=== PATIENT | female | born 1970 ===

== ENCOUNTER 2018-02-14 23:46 | Inpatient (IN) ==
[2018-02-15] MEDS ORDERED: ACETAMINOPHEN 325 MG SUPP RECTAL ONE (01:34)
[2018-02-15] MEDS ORDERED: ONDANSETRON 4 MG/2 ML VIAL IV PRN (02:14)
[2018-02-15] MEDS ORDERED: MORPHINE 4 MG/1 ML VIAL IV PRN (02:14)
[2018-02-15] MEDS: metroNIDAZOLE INJ 500 MG in PREMIX 1 EACH IV SCH ×4 (03:11→20:17)
[2018-02-15] MEDS: SODIUM CHLORIDE 0.9% 1,000 ML IV SCH ×4 (03:12→18:14)
[2018-02-15 04:39] LABS: Basophils # 0.1 10*3/uL (0.0-0.2); Basophils % 0.2 % (0.0-0.8); Hematocrit 28.4 VOL% (35.7-47.0); Hemoglobin 8.8 GM/DL (12.0-16.0); Immature Granulocytes % 3.8 %; Immature Granulocytes Absolute 1.65 #; Lymphocytes # 1.1 10*3/uL (1.4-4.0); Lymphocytes % 2.7 % (21.3-54.2); Mean Corpuscular Hemoglobin 26 PG (27-34); Mean Corpuscular Volume 83.5 FL (87-102); Mean Platelet Volume 9.9 FL (9.6-12.0); Monocytes # 1.8 10*3/uL (0.11-0.8); Monocytes % 4.2 % (1.7-12.7); Neutrophils # 38.3 10*3/uL (1.4-7.4); Neutrophils % 89.1 % (38.7-73.9); Platelet Count 470 T/CUMM (130-400); Red Cell Distribution Width 19.5 % (9.3-17.3)
[2018-02-15 04:58] LABS: White Blood Count 42.9 T/CUMM (4-12)
[2018-02-15 05:04] LABS: Calcium 7.6 MG/DL (8.5-10.1); Osmolality,Calculated 268.2 MOS/KG (273-304); Potassium 3.5 MMOL/L (3.5-5.1)
[2018-02-15] MEDS: cefTRIAXone 2,000 MG in SYRINGE 1 EACH IV SCH ×2 (05:21→16:27)
[2018-02-15 06:06] LABS: Band Neutrophils 7 % (0-10); Lymphocytes 3 % (20-55); Segmented Neutrophils 84 % (50-85); Total Cells Counted 100
[2018-02-15 06:07] LABS: Elliptocytes 1+; Hypochromasia 1+; Ovalocytes 1+
[2018-02-15 06:08] LABS: Microcytosis 1+; Platelet Estimate Normal
[2018-02-15 06:09] LABS: Polychromasia Few
[2018-02-16] MEDS: metroNIDAZOLE INJ 500 MG in PREMIX 1 EACH IV SCH ×4 (02:09→20:59)
[2018-02-16] MEDS: SODIUM CHLORIDE 0.9% 1,000 ML IV SCH ×2 (02:09→09:22)
[2018-02-16] MEDS: cefTRIAXone 2,000 MG in SYRINGE 1 EACH IV SCH ×2 (04:31→16:08)
[2018-02-16 06:05] LABS: Basophils % 0.1 % (0.0-0.8); Eosinophils % 0.1 % (0.00-10.9); Hematocrit 22.4 VOL% (35.7-47.0); Hemoglobin 7.1 GM/DL (12.0-16.0); Immature Granulocytes % 2.7 %; Immature Granulocytes Absolute 0.76 #; Lymphocytes # 1.4 10*3/uL (1.4-4.0); Lymphocytes % 4.9 % (21.3-54.2); Mean Corpuscular HGB Conc 31.7 GM/DL (32-36); Mean Corpuscular Hemoglobin 26 PG (27-34); Mean Corpuscular Volume 82.4 FL (87-102); Mean Platelet Volume 9.5 FL (9.6-12.0); Monocytes # 0.9 10*3/uL (0.11-0.8); Monocytes % 3.2 % (1.7-12.7); Neutrophils # 25.5 10*3/uL (1.4-7.4); Platelet Count 350 T/CUMM (130-400); Red Blood Count 2.72 MC/CUMM (3.8-5.5); Red Cell Distribution Width 19.6 % (9.3-17.3); White Blood Count 28.7 T/CUMM (4-12)
[2018-02-16 06:36] LABS: Giant Platelets Few; Hypochromasia 1+; Lymphocytes 4 % (20-55); Microcytosis Slight; Ovalocytes Slight; Platelet Estimate Adequate; Segmented Neutrophils 94 % (50-85); Total Cells Counted 100
[2018-02-16 06:43] LABS: Bilirubin,Total 0.4 MG/DL (0.2-1.0); Calcium 7.4 MG/DL (8.5-10.1); Potassium 3.3 MMOL/L (3.5-5.1); Total Protein 5.3 G/DL (6.4-8.3)
[2018-02-16 12:33] LABS: Hematocrit 23.1 VOL% (35.7-47.0); Hemoglobin 7.2 GM/DL (12.0-16.0)
[2018-02-16] MEDS: ACETAMINOPHEN 500 MG TABLET PO PRN (17:13)
[2018-02-17] MEDS: metroNIDAZOLE INJ 500 MG in PREMIX 1 EACH IV SCH ×4 (02:07→21:30)
[2018-02-17] MEDS: ACETAMINOPHEN 500 MG TABLET PO PRN (03:11)
[2018-02-17] MEDS: cefTRIAXone 2,000 MG in SYRINGE 1 EACH IV SCH ×2 (04:47→16:51)
[2018-02-17 05:10] LABS: Basophils % 0.2 % (0.0-0.8); Eosinophils # 0.1 10*3/uL (0.0-0.87); Eosinophils % 0.4 % (0.00-10.9); Hematocrit 23.9 VOL% (35.7-47.0); Hemoglobin 7.3 GM/DL (12.0-16.0); Immature Granulocytes % 0.7 %; Immature Granulocytes Absolute 0.13 #; Lymphocytes # 1.7 10*3/uL (1.4-4.0); Lymphocytes % 8.5 % (21.3-54.2); Mean Corpuscular HGB Conc 30.5 GM/DL (32-36); Mean Corpuscular Hemoglobin 26 PG (27-34); Mean Corpuscular Volume 84.2 FL (87-102); Mean Platelet Volume 11.2 FL (9.6-12.0); Monocytes # 0.9 10*3/uL (0.11-0.8); Monocytes % 4.7 % (1.7-12.7); Neutrophils # 16.7 10*3/uL (1.4-7.4); Neutrophils % 85.5 % (38.7-73.9); Platelet Count 345 T/CUMM (130-400); Red Blood Count 2.84 MC/CUMM (3.8-5.5); Red Cell Distribution Width 19.6 % (9.3-17.3); White Blood Count 19.6 T/CUMM (4-12)
[2018-02-17 05:43] LABS: Albumin 2.2 G/DL (3.4-5.0); Calcium 7.4 MG/DL (8.5-10.1); Osmolality,Calculated 273.7 MOS/KG (273-304); Potassium 3.5 MMOL/L (3.5-5.1); Total Protein 5.6 G/DL (6.4-8.3)
[2018-02-17] MEDS ORDERED: SODIUM CHLORIDE 0.9% 1,000 ML IV PRN (09:27)
[2018-02-17 18:30] LABS: Hematocrit 31.4 VOL% (35.7-47.0)
[2018-02-18] MEDS: metroNIDAZOLE INJ 500 MG in PREMIX 1 EACH IV SCH ×2 (01:56→09:19)
[2018-02-18] MEDS: cefTRIAXone 2,000 MG in SYRINGE 1 EACH IV SCH (04:47)
[2018-02-18 08:39] LABS: Basophils # 0.1 10*3/uL (0.0-0.2); Basophils % 0.5 % (0.0-0.8); Eosinophils # 0.1 10*3/uL (0.0-0.87); Hematocrit 32.2 VOL% (35.7-47.0); Hemoglobin 10.6 GM/DL (12.0-16.0); Immature Granulocytes % 1.7 %; Lymphocytes # 1.6 10*3/uL (1.4-4.0); Lymphocytes % 13.4 % (21.3-54.2); Mean Corpuscular HGB Conc 32.9 GM/DL (32-36); Mean Corpuscular Hemoglobin 27 PG (27-34); Mean Corpuscular Volume 80.9 FL (87-102); Mean Platelet Volume 10.1 FL (9.6-12.0); Monocytes # 1.2 10*3/uL (0.11-0.8); Monocytes % 10.2 % (1.7-12.7); NRBC # 0.03 10*3/uL; Neutrophils # 8.6 10*3/uL (1.4-7.4); Neutrophils % 73.2 % (38.7-73.9); Platelet Count 556 T/CUMM (130-400); Red Blood Count 3.98 MC/CUMM (3.8-5.5); Red Cell Distribution Width 18.6 % (9.3-17.3); White Blood Count 11.7 T/CUMM (4-12)
[2018-02-18 08:54] VITALS: BP 121/71
== END 2018-02-18 11:07 | disposition home or self-care (01) | DRG 759 ==
LOC: EDUNIT# → N.ED 23:46 → N.EDINP 02-15 00:24 → N.2E 02-15 01:29 → N.TELEN 02-15 02:42
PROVIDERS: ADMIT Obstetrics & Gynecology; ATTEND Obstetrics & Gynecology

== ENCOUNTER 2020-04-03 01:34 | Inpatient (IN) ==
[2020-04-03] MEDS ORDERED: PROMETHAZINE 25 MG/1 ML VIAL IM PRN (03:24)
[2020-04-03] MEDS ORDERED: ONDANSETRON 4 MG/2 ML VIAL IV PRN (03:24)
[2020-04-03] MEDS ORDERED: NOREPINEPHRINE 8 MG in SODIUM CHLORIDE 0.9% 242 ML IV SCH (03:30)
[2020-04-03] MEDS ORDERED: propofoL 200 MG/20 ML VIAL IV ONE (03:36)
[2020-04-03] MEDS: ROCURONIUM 500 MG in SODIUM CHLORIDE 0.9% 500 ML IV PRN (03:41)
[2020-04-03] MEDS ORDERED: ROCURONIUM 100 MG/10 ML VIAL IV ONE ×2 (03:45→03:59)
[2020-04-03 04:45] LABS: Basophils # 0.1 10*3/uL (0.0-0.2); Basophils % 0.5 % (0.0-0.8); Hematocrit 41.7 VOL% (35.7-47.0); Hemoglobin 12.9 GM/DL (12.0-16.0); Immature Granulocytes % 9.2 %; Immature Granulocytes Absolute 1.94 #; Lymphocytes # 2.1 10*3/uL (1.4-4.0); Lymphocytes % 10.1 % (21.3-54.2); Mean Corpuscular HGB Conc 30.9 GM/DL (32-36); Mean Corpuscular Volume 95.6 FL (87-102); Mean Platelet Volume 9.7 FL (9.6-12.0); Monocytes % 4.7 % (1.7-12.7); NRBC # 0.14 10*3/uL; Neutrophils % 75.5 % (38.7-73.9); Platelet Count 200 T/CUMM (130-400); Red Blood Count 4.36 MC/CUMM (3.8-5.5); Red Cell Distribution Width 12.4 % (9.3-17.3)
[2020-04-03 04:52] LABS: ABG Base Excess -8.4 MMOL/L (-2.5-2.5); ABG HCO3 17.7 MMOL/L (20-26); ABG Oxygen Saturation 96.4 % (95-100); ABG TCO2 21.3 MMOL/L (23-27)
[2020-04-03 04:55] LABS: ABG PCO2 71.2 MM HG (35-48); ABG PH 7.119 (7.35-7.45)
[2020-04-03] MEDS: PANTOPRAZOLE 40 MG VIAL IV SCH (06:15)
[2020-04-03 06:55] LABS: Alanine Aminotransferase 797 U/L (13-56); Albumin 2.3 G/DL (3.4-5.0); Alkaline Phosphatase 355 U/L (45-117); Aspartate Amino Transferase 1885 U/L (0-37); Blood Urea Nitrogen 34 MG/DL (7-18); Calcium 7.1 MG/DL (8.5-10.1); Estimated Glom Filtration Rate 19 ML/MIN; Glucose 299 MG/DL (74-106); Osmolality,Calculated 269.5 MOS/KG (273-304); Total Protein 6.9 G/DL (6.4-8.3)
[2020-04-03] MEDS ORDERED: PHENYLEPHRINE DRIP 40 MG/250 ML PREMIX IV PRN (07:18)
[2020-04-03] MEDS: ENOXAPARIN 100 MG/ML SYRINGE SUBCUT SCH (08:15)
[2020-04-03] MEDS ORDERED: GLUCAGON 1 MG VIAL IM PRN (08:30)
[2020-04-03 08:55] LABS: ABG Base Excess -8.3 MMOL/L (-2.5-2.5); ABG HCO3 17.8 MMOL/L (20-26); ABG Oxygen Saturation 98.1 % (95-100); ABG PCO2 48.3 MM HG (35-48); ABG PH 7.221 (7.35-7.45); ABG TCO2 17.7 MMOL/L (23-27)
[2020-04-03] MEDS: HYDROXYCHLOROQUINE 200 MG TABLET PO SCH ×2 (09:45→21:09)
[2020-04-03] MEDS: ZINC SULFATE 220 MG CAPSULE PO SCH (09:45)
[2020-04-03] MEDS ORDERED: NOREPINEPHRINE 16 MG in SODIUM CHLORIDE 0.9% 234 ML IV PRN (10:57)
[2020-04-03 11:57] LABS: Band Neutrophils 4 % (0-10); Lymphocytes 4 % (20-55); Polychromasia Slight; Segmented Neutrophils 86 % (50-85); Total Cells Counted 100
[2020-04-03 11:58] LABS: Platelet Estimate Adequate; Reactive Lymphocytes Few
[2020-04-03] MEDS: INSULIN REGULAR 100 UNIT/ML SUBCUT SCH ×3 (12:19→23:40)
[2020-04-03 13:18] LABS: Calcium 6.8 MG/DL (8.5-10.1); Osmolality,Calculated 273.2 MOS/KG (273-304)
[2020-04-03] MEDS: ASPIRIN CHEW 81 MG TABLET PO SCH (13:35)
[2020-04-03] MEDS ORDERED: INSULIN REGULAR 100 UNIT/ML IV ONE (13:53)
[2020-04-03] MEDS ORDERED: CALCIUM GLUCONATE 2,000 MG in SODIUM CHLORIDE 0.9% 100 ML IV ONE (13:56)
[2020-04-03 14:20] LABS: Sedimentation Rate-Westergren 36 MM/HR (0-30)
[2020-04-03] MEDS ORDERED: DEXTROSE 50% 25 GM/50 ML VIAL IV ONE (14:54)
[2020-04-03] MEDS ORDERED: SODIUM BICARBONATE 50 MEQ/50 ML VIAL IV ONE (14:56)
[2020-04-03] MEDS: DEXTROSE 10% 250 ML BAG IV PRN (15:02)
[2020-04-04] MEDS ORDERED: LORazepam 2 MG/1 ML VIAL IV PRN (01:06)
[2020-04-04] MEDS ORDERED: LORazepam 2 MG/1 ML VIAL ONE (01:10)
[2020-04-04] MEDS: PANTOPRAZOLE 40 MG VIAL IV SCH (04:00)
[2020-04-04] MEDS: ENOXAPARIN 100 MG/ML SYRINGE SUBCUT SCH (04:00)
[2020-04-04 04:23] LABS: ABG Base Excess -4.9 MMOL/L (-2.5-2.5); ABG HCO3 20.3 MMOL/L (20-26); ABG Oxygen Saturation 95.1 % (95-100); ABG PCO2 47.5 MM HG (35-48); ABG PH 7.277 (7.35-7.45); ABG PO2 92.7 MM HG (80-95); ABG TCO2 19.9 MMOL/L (23-27)
[2020-04-04 04:47] LABS: Basophils # 0.1 10*3/uL (0.0-0.2); Basophils % 0.5 % (0.0-0.8); Eosinophils # 0.1 10*3/uL (0.0-0.87); Eosinophils % 0.3 % (0.00-10.9); Hemoglobin 12.3 GM/DL (12.0-16.0); Immature Granulocytes Absolute 0.89 #; Lymphocytes % 5.5 % (21.3-54.2); Mean Corpuscular HGB Conc 32.4 GM/DL (32-36); Mean Corpuscular Volume 90.3 FL (87-102); Mean Platelet Volume 11.8 FL (9.6-12.0); Monocytes % 2.8 % (1.7-12.7); NRBC # 0.09 10*3/uL; Neutrophils % 85.9 % (38.7-73.9); Red Blood Count 4.21 MC/CUMM (3.8-5.5); Red Cell Distribution Width 12.6 % (9.3-17.3); White Blood Count 17.7 T/CUMM (4-12)
[2020-04-04 05:03] LABS: Platelet Count 113 T/CUMM (130-400)
[2020-04-04 05:06] LABS: Band Neutrophils 1 % (0-10); Hypochromasia 1+; Lymphocytes 9 % (20-55); Nucleated Red Blood Cells 1 (0-5); Platelet Estimate Decreased; Segmented Neutrophils 89 % (50-85); Total Cells Counted 100
[2020-04-04] MEDS: INSULIN REGULAR 100 UNIT/ML SUBCUT SCH ×3 (06:32→17:34)
[2020-04-04 06:52] LABS: Albumin 2.3 G/DL (3.4-5.0); Bilirubin,Total 0.6 MG/DL (0.2-1.0); Calcium 6.1 MG/DL (8.5-10.1); Osmolality,Calculated 286.4 MOS/KG (273-304); Total Protein 6.1 G/DL (6.4-8.3)
[2020-04-04] MEDS: ASPIRIN CHEW 81 MG TABLET PO SCH (08:22)
[2020-04-04] MEDS: HYDROXYCHLOROQUINE 200 MG TABLET PO SCH ×2 (08:24→20:31)
[2020-04-04] MEDS: HEPARIN DRIP 25,000 UNITS/500 ML PREMIX IV SCH (16:50)
[2020-04-04] MEDS: cefTRIAXone 1,000 MG in SYRINGE 1 EACH IV SCH (20:59)
[2020-04-04] MEDS ORDERED: HEPARIN 5,000 UNIT/1 ML VIAL IV ONE (23:30)
[2020-04-05] MEDS: INSULIN REGULAR 100 UNIT/ML SUBCUT SCH ×4 (01:20→17:50)
[2020-04-05 04:39] LABS: ABG Base Excess -5.4 MMOL/L (-2.5-2.5); ABG Oxygen Saturation 97.1 % (95-100); ABG PCO2 40.6 MM HG (35-48); ABG PH 7.312 (7.35-7.45); ABG TCO2 18.4 MMOL/L (23-27)
[2020-04-05 04:55] LABS: Basophils # 0.1 10*3/uL (0.0-0.2); Basophils % 0.5 % (0.0-0.8); Eosinophils # 0.1 10*3/uL (0.0-0.87); Eosinophils % 0.3 % (0.00-10.9); Hematocrit 33.7 VOL% (35.7-47.0); Hemoglobin 10.9 GM/DL (12.0-16.0); Immature Granulocytes % 7.1 %; Lymphocytes # 1.3 10*3/uL (1.4-4.0); Lymphocytes % 6.5 % (21.3-54.2); Mean Corpuscular HGB Conc 32.3 GM/DL (32-36); Mean Corpuscular Volume 91.8 FL (87-102); Mean Platelet Volume 12.1 FL (9.6-12.0); Monocytes % 3.1 % (1.7-12.7); NRBC # 0.18 10*3/uL; Neutrophils % 82.5 % (38.7-73.9); Platelet Count 163 T/CUMM (130-400); Red Blood Count 3.67 MC/CUMM (3.8-5.5); Red Cell Distribution Width 12.6 % (9.3-17.3); White Blood Count 19.7 T/CUMM (4-12)
[2020-04-05 05:08] LABS: Osmolality,Calculated 298.2 MOS/KG (273-304)
[2020-04-05 05:10] LABS: Calcium 5.7 MG/DL (8.5-10.1)
[2020-04-05 05:32] LABS: Band Neutrophils 2 % (0-10); Eosinophils 1 % (0-10); Hypochromasia 1+; Lymphocytes 3 % (20-55); Microcytosis Slight; Nucleated Red Blood Cells 2 (0-5); Platelet Estimate Adequate; Segmented Neutrophils 90 % (50-85); Total Cells Counted 100
[2020-04-05] MEDS: HYDROXYCHLOROQUINE 200 MG TABLET PO SCH ×2 (08:28→20:23)
[2020-04-05] MEDS: PANTOPRAZOLE 40 MG VIAL IV SCH (08:30)
[2020-04-05] MEDS: ZINC SULFATE 220 MG CAPSULE PO SCH (08:30)
[2020-04-05] MEDS: ASPIRIN CHEW 81 MG TABLET PO SCH (08:30)
[2020-04-05] MEDS ORDERED: CALCIUM GLUCONATE 1,000 MG in SODIUM CHLORIDE 0.9% 100 ML IV ONE (10:30)
[2020-04-05] MEDS: HEPARIN DRIP 25,000 UNITS/500 ML PREMIX IV SCH ×2 (10:52→17:50)
[2020-04-05 12:20] LABS: INR 1.1; PT Patient Result 11.3 SECS (9.8-11.9); Partial Thromboplastin Time 46.5 SECS (23.9-33.8)
[2020-04-05] MEDS ORDERED: SODIUM CHLORIDE 0.9% 1,000 ML IV PRN (13:03)
[2020-04-05] MEDS: cefTRIAXone 1,000 MG in SYRINGE 1 EACH IV SCH (20:23)
[2020-04-05 20:57] LABS: PT Patient Result 11.2 SECS (9.8-11.9); Partial Thromboplastin Time 52.3 SECS (23.9-33.8)
[2020-04-06] MEDS: INSULIN REGULAR 100 UNIT/ML SUBCUT SCH ×4 (01:45→17:03)
[2020-04-06] MEDS: HEPARIN DRIP 25,000 UNITS/500 ML PREMIX IV SCH ×2 (03:26→20:39)
[2020-04-06 05:16] LABS: ABG Base Excess -7.7 MMOL/L (-2.5-2.5); ABG HCO3 18.3 MMOL/L (20-26); ABG Oxygen Saturation 98.1 % (95-100); ABG PCO2 44.2 MM HG (35-48); ABG PH 7.253 (7.35-7.45); ABG TCO2 17.4 MMOL/L (23-27)
[2020-04-06 05:25] LABS: Basophils % 0.1 % (0.0-0.8); Eosinophils # 0.2 10*3/uL (0.0-0.87); Eosinophils % 0.6 % (0.00-10.9); Hematocrit 32.3 VOL% (35.7-47.0); Hemoglobin 10.5 GM/DL (12.0-16.0); Immature Granulocytes % 11.6 %; Immature Granulocytes Absolute 3.25 #; Lymphocytes # 1.4 10*3/uL (1.4-4.0); Lymphocytes % 4.9 % (21.3-54.2); Mean Corpuscular HGB Conc 32.5 GM/DL (32-36); Mean Platelet Volume 11.5 FL (9.6-12.0); Monocytes % 4.8 % (1.7-12.7); NRBC # 0.22 10*3/uL; Platelet Count 188 T/CUMM (130-400); Red Blood Count 3.55 MC/CUMM (3.8-5.5); Red Cell Distribution Width 12.8 % (9.3-17.3); White Blood Count 28.1 T/CUMM (4-12)
[2020-04-06 05:39] LABS: Calcium 6.2 MG/DL (8.5-10.1); Osmolality,Calculated 307.2 MOS/KG (273-304)
[2020-04-06 05:51] LABS: Band Neutrophils 2 % (0-10); Eosinophils 1 % (0-10); Lymphocytes 6 % (20-55); Metamyelocytes 2 %; Segmented Neutrophils 82 % (50-85); Total Cells Counted 100
[2020-04-06 05:52] LABS: Hypochromasia 1+; Microcytosis Slight
[2020-04-06] MEDS ORDERED: PHENYLEPHRINE 1 MG/10 ML SYRINGE IV ONE (07:00)
[2020-04-06] MEDS ORDERED: SODIUM CHLORIDE 0.9% 0 ML IV ONE (07:00)
[2020-04-06] MEDS ORDERED: VECURONIUM 10 MG VIAL IV ONE (07:00)
[2020-04-06] MEDS ORDERED: MIDAZOLAM 10 MG/2 ML VIAL ONE (07:00)
[2020-04-06] MEDS: HYDROXYCHLOROQUINE 200 MG TABLET PO SCH ×2 (08:31→20:40)
[2020-04-06] MEDS: PANTOPRAZOLE 40 MG VIAL IV SCH (08:31)
[2020-04-06] MEDS: ASPIRIN CHEW 81 MG TABLET PO SCH (08:31)
[2020-04-06 12:29] LABS: Hepatitis B Core IgM Quant 0.14 Index; Hepatitis B Surface Ag Quant < 0.10 Index; Hepatitis B Surface Ag Result Negative (Negative); Hepatitis C Virus Ab Quant 0.16 Index; Hepatitis C Virus Ab Result Negative (Negative)
[2020-04-06] MEDS ORDERED: CALCIUM GLUCONATE 1,000 MG in SODIUM CHLORIDE 0.9% 100 ML IV ONE (13:00)
[2020-04-06] MEDS ORDERED: HEPARIN 10,000 UNIT/10 ML VIAL IV SCH (14:30)
[2020-04-06] MEDS: ROCURONIUM 500 MG in SODIUM CHLORIDE 0.9% 500 ML IV PRN (17:03)
[2020-04-06] MEDS: cefTRIAXone 1,000 MG in SYRINGE 1 EACH IV SCH (20:40)
[2020-04-07] MEDS: INSULIN REGULAR 100 UNIT/ML SUBCUT SCH ×4 (02:08→17:51)
[2020-04-07 04:40] LABS: ABG Base Excess -4.5 MMOL/L (-2.5-2.5); ABG HCO3 21.2 MMOL/L (20-26); ABG Oxygen Saturation 95.1 % (95-100); ABG PCO2 41.4 MM HG (35-48); ABG PH 7.328 (7.35-7.45); ABG PO2 89.4 MM HG (80-95); ABG TCO2 22.5 MMOL/L (23-27)
[2020-04-07 04:59] LABS: Basophils # 0.1 10*3/uL (0.0-0.2); Basophils % 0.2 % (0.0-0.8); Eosinophils # 0.3 10*3/uL (0.0-0.87); Eosinophils % 0.9 % (0.00-10.9); Hematocrit 32.1 VOL% (35.7-47.0); Hemoglobin 10.3 GM/DL (12.0-16.0); Immature Granulocytes % 15.8 %; Immature Granulocytes Absolute 4.61 #; Lymphocytes % 3.5 % (21.3-54.2); Mean Corpuscular HGB Conc 32.1 GM/DL (32-36); Mean Corpuscular Volume 91.7 FL (87-102); Mean Platelet Volume 11.4 FL (9.6-12.0); Monocytes % 5.3 % (1.7-12.7); NRBC # 0.48 10*3/uL; Neutrophils % 74.3 % (38.7-73.9); Platelet Count 229 T/CUMM (130-400); White Blood Count 29.1 T/CUMM (4-12)
[2020-04-07 05:35] LABS: Band Neutrophils 4 % (0-10); Eosinophils 1 % (0-10); Lymphocytes 6 % (20-55); Nucleated Red Blood Cells 2 (0-5); Platelet Estimate Adequate; Segmented Neutrophils 83 % (50-85); Total Cells Counted 100
[2020-04-07 05:36] LABS: Hypochromasia 1+; Microcytosis 1+; Ovalocytes Slight
[2020-04-07 05:52] LABS: Calcium 7.6 MG/DL (8.5-10.1); Osmolality,Calculated 289.4 MOS/KG (273-304)
[2020-04-07] MEDS ORDERED: HEPARIN 5,000 UNIT/1 ML VIAL IV ONE (07:19)
[2020-04-07] MEDS: PANTOPRAZOLE 40 MG VIAL IV SCH (08:00)
[2020-04-07] MEDS: HYDROXYCHLOROQUINE 200 MG TABLET PO SCH ×2 (08:00→20:49)
[2020-04-07] MEDS: ASPIRIN CHEW 81 MG TABLET PO SCH (08:00)
[2020-04-07] MEDS: ZINC SULFATE 220 MG CAPSULE PO SCH (08:00)
[2020-04-07] MEDS: HEPARIN DRIP 25,000 UNITS/500 ML PREMIX IV SCH ×2 (12:55→17:50)
[2020-04-07] MEDS: cefTRIAXone 1,000 MG in SYRINGE 1 EACH IV SCH (20:49)
[2020-04-07] MEDS: ROCURONIUM 500 MG in SODIUM CHLORIDE 0.9% 500 ML IV PRN (23:11)
[2020-04-08] MEDS: INSULIN REGULAR 100 UNIT/ML SUBCUT SCH ×4 (00:30→17:27)
[2020-04-08 05:16] LABS: ABG Base Excess -7.5 MMOL/L (-2.5-2.5); ABG Oxygen Saturation 98.5 % (95-100); ABG PCO2 42.5 MM HG (35-48); ABG PH 7.269 (7.35-7.45); ABG PO2 222.7 MM HG (80-95); ABG TCO2 20.3 MMOL/L (23-27)
[2020-04-08 05:35] LABS: Basophils # 0.1 10*3/uL (0.0-0.2); Basophils % 0.2 % (0.0-0.8); Eosinophils # 0.5 10*3/uL (0.0-0.87); Eosinophils % 1.6 % (0.00-10.9); Hematocrit 30.7 VOL% (35.7-47.0); Immature Granulocytes % 19.5 %; Immature Granulocytes Absolute 5.61 #; Lymphocytes # 1.1 10*3/uL (1.4-4.0); Lymphocytes % 3.9 % (21.3-54.2); Mean Corpuscular HGB Conc 32.6 GM/DL (32-36); Mean Corpuscular Volume 92.7 FL (87-102); Mean Platelet Volume 11.9 FL (9.6-12.0); Monocytes % 4.6 % (1.7-12.7); NRBC # 0.19 10*3/uL; Neutrophils % 70.2 % (38.7-73.9); Platelet Count 230 T/CUMM (130-400); Red Blood Count 3.31 MC/CUMM (3.8-5.5); Red Cell Distribution Width 13.2 % (9.3-17.3); White Blood Count 28.8 T/CUMM (4-12)
[2020-04-08 06:02] LABS: Calcium 8.1 MG/DL (8.5-10.1); Osmolality,Calculated 291.9 MOS/KG (273-304)
[2020-04-08] MEDS: HEPARIN DRIP 25,000 UNITS/500 ML PREMIX IV SCH ×3 (06:22→22:57)
[2020-04-08 06:31] LABS: Anisocytosis 1+; Band Neutrophils 29 % (0-10); Eosinophils 3 % (0-10); Lymphocytes 6 % (20-55); Metamyelocytes 6 %; Myelocytes 2 %; Platelet Estimate Normal; Segmented Neutrophils 51 % (50-85); Total Cells Counted 100
[2020-04-08 06:32] LABS: Giant Platelets Few
[2020-04-08] MEDS ORDERED: HEPARIN 5,000 UNIT/1 ML VIAL IV ONE (06:54)
[2020-04-08] MEDS: ROCURONIUM 500 MG in SODIUM CHLORIDE 0.9% 500 ML IV PRN ×3 (07:27→23:47)
[2020-04-08] MEDS: PANTOPRAZOLE 40 MG VIAL IV SCH (08:42)
[2020-04-08] MEDS: ASPIRIN CHEW 81 MG TABLET PO SCH (08:43)
[2020-04-08] MEDS: cefTRIAXone 1,000 MG in SYRINGE 1 EACH IV SCH (20:43)
[2020-04-09] MEDS: INSULIN REGULAR 100 UNIT/ML SUBCUT SCH ×4 (01:40→17:29)
[2020-04-09 02:11] LABS: ABG Base Excess -6.6 MMOL/L (-2.5-2.5); ABG Oxygen Saturation 98.6 % (95-100); ABG PCO2 42.8 MM HG (35-48); ABG PH 7.276 (7.35-7.45); ABG TCO2 18.5 MMOL/L (23-27)
[2020-04-09] MEDS: ASPIRIN CHEW 81 MG TABLET PO SCH (07:59)
[2020-04-09] MEDS: PANTOPRAZOLE 40 MG VIAL IV SCH (08:00)
[2020-04-09 08:04] LABS: Basophils # 0.1 10*3/uL (0.0-0.2); Basophils % 0.4 % (0.0-0.8); Eosinophils # 0.4 10*3/uL (0.0-0.87); Eosinophils % 1.7 % (0.00-10.9); Hematocrit 29.5 VOL% (35.7-47.0); Hemoglobin 9.2 GM/DL (12.0-16.0); Immature Granulocytes % 20.5 %; Immature Granulocytes Absolute 5.01 #; Lymphocytes # 0.8 10*3/uL (1.4-4.0); Lymphocytes % 3.4 % (21.3-54.2); Mean Corpuscular HGB Conc 31.2 GM/DL (32-36); Mean Corpuscular Volume 94.9 FL (87-102); Mean Platelet Volume 11.1 FL (9.6-12.0); Monocytes % 5.6 % (1.7-12.7); NRBC # 0.07 10*3/uL; Neutrophils % 68.4 % (38.7-73.9); Platelet Count 241 T/CUMM (130-400); Red Blood Count 3.11 MC/CUMM (3.8-5.5); Red Cell Distribution Width 13.6 % (9.3-17.3); White Blood Count 24.5 T/CUMM (4-12)
[2020-04-09 08:22] LABS: Albumin 1.7 G/DL (3.4-5.0); Osmolality,Calculated 294.8 MOS/KG (273-304); Total Protein 6.3 G/DL (6.4-8.3)
[2020-04-09 08:25] LABS: Band Neutrophils 6 % (0-10); Hypochromasia 1+; Lymphocytes 8 % (20-55); Platelet Estimate Adequate; Segmented Neutrophils 80 % (50-85); Total Cells Counted 100
[2020-04-09] MEDS: ROCURONIUM 500 MG in SODIUM CHLORIDE 0.9% 500 ML IV PRN ×2 (08:27→16:57)
[2020-04-09] MEDS: HEPARIN DRIP 25,000 UNITS/500 ML PREMIX IV SCH ×2 (15:55→17:29)
[2020-04-09] MEDS ORDERED: HEPARIN 5,000 UNIT/1 ML VIAL IV ONE (16:14)
[2020-04-09] MEDS: cefTRIAXone 1,000 MG in SYRINGE 1 EACH IV SCH (21:00)
[2020-04-10] MEDS: INSULIN REGULAR 100 UNIT/ML SUBCUT SCH ×4 (00:36→18:05)
[2020-04-10] MEDS: ROCURONIUM 500 MG in SODIUM CHLORIDE 0.9% 500 ML IV PRN ×2 (01:41→09:28)
[2020-04-10 05:14] LABS: ABG Base Excess -11.5 MMOL/L (-2.5-2.5); ABG HCO3 15.3 MMOL/L (20-26); ABG Oxygen Saturation 98.3 % (95-100); ABG PCO2 42.7 MM HG (35-48); ABG TCO2 15.4 MMOL/L (23-27)
[2020-04-10 05:28] LABS: ABG PH 7.187 (7.35-7.45)
[2020-04-10 05:33] LABS: Basophils # 0.1 10*3/uL (0.0-0.2); Basophils % 0.4 % (0.0-0.8); Eosinophils # 0.2 10*3/uL (0.0-0.87); Eosinophils % 0.7 % (0.00-10.9); Hematocrit 29.6 VOL% (35.7-47.0); Hemoglobin 9.1 GM/DL (12.0-16.0); Immature Granulocytes % 18.8 %; Immature Granulocytes Absolute 4.53 #; Lymphocytes # 0.7 10*3/uL (1.4-4.0); Mean Corpuscular HGB Conc 30.7 GM/DL (32-36); Mean Corpuscular Volume 95.5 FL (87-102); Mean Platelet Volume 10.8 FL (9.6-12.0); Monocytes % 6.4 % (1.7-12.7); NRBC # 0.06 10*3/uL; Neutrophils % 70.7 % (38.7-73.9); Platelet Count 262 T/CUMM (130-400); Red Cell Distribution Width 13.8 % (9.3-17.3); White Blood Count 24.1 T/CUMM (4-12)
[2020-04-10 05:54] LABS: Band Neutrophils 9 % (0-10); Eosinophils 1 % (0-10); Lymphocytes 6 % (20-55); Platelet Estimate Adequate; Segmented Neutrophils 77 % (50-85); Total Cells Counted 100
[2020-04-10 05:55] LABS: Hypochromasia 1+
[2020-04-10 06:13] LABS: Albumin 1.6 G/DL (3.4-5.0); Bilirubin,Total 1.4 MG/DL (0.2-1.0); Calcium 7.8 MG/DL (8.5-10.1); Osmolality,Calculated 302.8 MOS/KG (273-304); Total Protein 6.3 G/DL (6.4-8.3)
[2020-04-10] MEDS: PANTOPRAZOLE 40 MG VIAL IV SCH (08:06)
[2020-04-10] MEDS: ASPIRIN CHEW 81 MG TABLET PO SCH (08:06)
[2020-04-10 08:11] LABS: ABG Base Excess -10.9 MMOL/L (-2.5-2.5); ABG HCO3 15.2 MMOL/L (20-26); ABG Oxygen Saturation 98.3 % (95-100); ABG PCO2 34.9 MM HG (35-48); ABG PH 7.258 (7.35-7.45); ABG PO2 159.4 MM HG (80-95); ABG TCO2 16.3 MMOL/L (23-27)
[2020-04-10] MEDS: HEPARIN DRIP 25,000 UNITS/500 ML PREMIX IV SCH ×3 (08:11→23:55)
[2020-04-10] MEDS ORDERED: SODIUM POLYSTYRENE SULFATE 15 GM/60 ML BOTTLE PO ONE (12:00)
[2020-04-10] MEDS ORDERED: SODIUM BICARB INJ 150 MEQ in STERILE WATER INJ 850 ML IV SCH (15:30)
[2020-04-10] MEDS: CISATRACURIUM 200 MG in SODIUM CHLORIDE 0.9% 180 ML IV PRN ×2 (16:42→23:32)
[2020-04-10] MEDS: cefTRIAXone 1,000 MG in SYRINGE 1 EACH IV SCH (20:18)
[2020-04-11] MEDS: INSULIN REGULAR 100 UNIT/ML SUBCUT SCH ×5 (00:02→23:29)
[2020-04-11 04:10] LABS: ABG Base Excess -11.2 MMOL/L (-2.5-2.5); ABG HCO3 14.9 MMOL/L (20-26); ABG Oxygen Saturation 98.5 % (95-100); ABG PO2 187.3 MM HG (80-95)
[2020-04-11 04:27] LABS: Basophils # 0.1 10*3/uL (0.0-0.2); Basophils % 0.3 % (0.0-0.8); Eosinophils # 0.2 10*3/uL (0.0-0.87); Eosinophils % 1.1 % (0.00-10.9); Hematocrit 27.3 VOL% (35.7-47.0); Hemoglobin 8.6 GM/DL (12.0-16.0); Immature Granulocytes % 13.9 %; Immature Granulocytes Absolute 2.64 #; Lymphocytes # 0.6 10*3/uL (1.4-4.0); Lymphocytes % 3.2 % (21.3-54.2); Mean Corpuscular HGB Conc 31.5 GM/DL (32-36); Mean Corpuscular Volume 93.2 FL (87-102); Mean Platelet Volume 10.6 FL (9.6-12.0); Monocytes % 5.6 % (1.7-12.7); NRBC # 0.06 10*3/uL; Neutrophils % 75.9 % (38.7-73.9); Platelet Count 309 T/CUMM (130-400); Red Blood Count 2.93 MC/CUMM (3.8-5.5); Red Cell Distribution Width 14.1 % (9.3-17.3); White Blood Count 18.9 T/CUMM (4-12)
[2020-04-11 04:40] LABS: Calcium 7.8 MG/DL (8.5-10.1); Osmolality,Calculated 302.2 MOS/KG (273-304)
[2020-04-11 04:57] LABS: Band Neutrophils 3 % (0-10); Eosinophils 2 % (0-10); Hypochromasia 1+; Lymphocytes 1 % (20-55); Metamyelocytes 2 %; Myelocytes 1 %; Promyelocytes 1 %; Segmented Neutrophils 78 % (50-85); Total Cells Counted 100
[2020-04-11 04:58] LABS: Microcytosis Slight; Platelet Estimate Normal
[2020-04-11] MEDS: CISATRACURIUM 200 MG in SODIUM CHLORIDE 0.9% 180 ML IV PRN (07:00)
[2020-04-11] MEDS: PANTOPRAZOLE 40 MG VIAL IV SCH (08:57)
[2020-04-11] MEDS: ASPIRIN CHEW 81 MG TABLET PO SCH (08:58)
[2020-04-11] MEDS: hydrALAZINE 20 MG/1 ML VIAL IV PRN (12:55)
[2020-04-11] MEDS: HEPARIN DRIP 25,000 UNITS/500 ML PREMIX IV SCH (15:34)
[2020-04-11] MEDS ORDERED: LEVOFLOXACIN INJ 750 MG in PREMIX 1 EACH IV ONE (15:38)
[2020-04-11] MEDS: amLODIPine 10 MG TABLET PO SCH (15:53)
[2020-04-11] MEDS: cefTRIAXone 1,000 MG in SYRINGE 1 EACH IV SCH (21:15)
[2020-04-12 05:37] LABS: ABG Base Excess -6.8 MMOL/L (-2.5-2.5); ABG HCO3 18.9 MMOL/L (20-26); ABG Oxygen Saturation 99.3 % (95-100); ABG PH 7.347 (7.35-7.45); ABG TCO2 16.8 MMOL/L (23-27)
[2020-04-12 05:39] LABS: Basophils # 0.1 10*3/uL (0.0-0.2); Basophils % 0.3 % (0.0-0.8); Eosinophils # 0.2 10*3/uL (0.0-0.87); Eosinophils % 1.3 % (0.00-10.9); Hematocrit 25.5 VOL% (35.7-47.0); Hemoglobin 8.4 GM/DL (12.0-16.0); Immature Granulocytes % 11.9 %; Immature Granulocytes Absolute 1.76 #; Lymphocytes # 0.7 10*3/uL (1.4-4.0); Lymphocytes % 4.8 % (21.3-54.2); Mean Corpuscular HGB Conc 32.9 GM/DL (32-36); Mean Corpuscular Volume 88.9 FL (87-102); Mean Platelet Volume 10.4 FL (9.6-12.0); Monocytes % 7.2 % (1.7-12.7); NRBC # 0.06 10*3/uL; Neutrophils % 74.5 % (38.7-73.9); Platelet Count 337 T/CUMM (130-400); Red Blood Count 2.87 MC/CUMM (3.8-5.5); Red Cell Distribution Width 13.9 % (9.3-17.3); White Blood Count 14.8 T/CUMM (4-12)
[2020-04-12] MEDS: INSULIN REGULAR 100 UNIT/ML SUBCUT SCH ×3 (05:42→17:03)
[2020-04-12 05:59] LABS: Calcium 7.7 MG/DL (8.5-10.1); Osmolality,Calculated 294.4 MOS/KG (273-304)
[2020-04-12] MEDS: HEPARIN DRIP 25,000 UNITS/500 ML PREMIX IV SCH ×3 (06:43→21:25)
[2020-04-12 07:14] LABS: Band Neutrophils 3 % (0-10); Eosinophils 2 % (0-10); Hypochromasia 1+; Lymphocytes 9 % (20-55); Microcytosis 1+; Platelet Estimate Adequate; Segmented Neutrophils 80 % (50-85); Total Cells Counted 100
[2020-04-12] MEDS: amLODIPine 10 MG TABLET PO SCH (08:53)
[2020-04-12] MEDS: PANTOPRAZOLE 40 MG VIAL IV SCH (08:53)
[2020-04-12] MEDS: ASPIRIN CHEW 81 MG TABLET PO SCH (08:53)
[2020-04-13] MEDS: INSULIN REGULAR 100 UNIT/ML SUBCUT SCH ×4 (00:05→17:28)
[2020-04-13 05:16] LABS: ABG Base Excess -5.2 MMOL/L (-2.5-2.5); ABG HCO3 20.1 MMOL/L (20-26); ABG Oxygen Saturation 97.1 % (95-100); ABG PCO2 34.8 MM HG (35-48); ABG TCO2 18.4 MMOL/L (23-27)
[2020-04-13 05:23] LABS: Basophils # 0.1 10*3/uL (0.0-0.2); Basophils % 0.4 % (0.0-0.8); Eosinophils # 0.2 10*3/uL (0.0-0.87); Eosinophils % 1.7 % (0.00-10.9); Hematocrit 26.8 VOL% (35.7-47.0); Hemoglobin 8.5 GM/DL (12.0-16.0); Immature Granulocytes % 9.7 %; Immature Granulocytes Absolute 1.33 #; Lymphocytes # 0.8 10*3/uL (1.4-4.0); Mean Corpuscular HGB Conc 31.7 GM/DL (32-36); Mean Corpuscular Volume 92.4 FL (87-102); Mean Platelet Volume 10.4 FL (9.6-12.0); Monocytes % 8.6 % (1.7-12.7); NRBC # 0.05 10*3/uL; Neutrophils % 73.6 % (38.7-73.9); Platelet Count 382 T/CUMM (130-400); Red Cell Distribution Width 14.1 % (9.3-17.3); White Blood Count 13.8 T/CUMM (4-12)
[2020-04-13 05:40] LABS: Calcium 8.2 MG/DL (8.5-10.1); Osmolality,Calculated 293.8 MOS/KG (273-304)
[2020-04-13 06:35] LABS: Band Neutrophils 3 % (0-10); Eosinophils 2 % (0-10); Lymphocytes 10 % (20-55); Metamyelocytes 5 %; Myelocytes 1 %; Segmented Neutrophils 68 % (50-85); Total Cells Counted 100
[2020-04-13 06:36] LABS: Anisocytosis Slight; Platelet Estimate Normal; Poikilocytosis Slight; Smudge Cells 1+
[2020-04-13] MEDS: ASPIRIN CHEW 81 MG TABLET PO SCH (08:39)
[2020-04-13] MEDS: PANTOPRAZOLE 40 MG VIAL IV SCH (08:39)
[2020-04-13] MEDS: amLODIPine 10 MG TABLET PO SCH (08:39)
[2020-04-13] MEDS: HEPARIN DRIP 25,000 UNITS/500 ML PREMIX IV SCH (11:50)
[2020-04-13] MEDS: LEVOFLOXACIN INJ 500 MG in PREMIX 1 EACH IV SCH (16:53)
[2020-04-13] MEDS: hydrALAZINE 20 MG/1 ML VIAL IV PRN (20:57)
[2020-04-14] MEDS: INSULIN REGULAR 100 UNIT/ML SUBCUT SCH ×4 (00:16→18:15)
[2020-04-14] MEDS: HEPARIN DRIP 25,000 UNITS/500 ML PREMIX IV SCH ×3 (01:46→18:07)
[2020-04-14] MEDS: DEXTROSE 10% 250 ML BAG IV PRN (06:08)
[2020-04-14] MEDS: amLODIPine 10 MG TABLET PO SCH (08:10)
[2020-04-14] MEDS: ASPIRIN CHEW 81 MG TABLET PO SCH (08:10)
[2020-04-14] MEDS: PANTOPRAZOLE 40 MG VIAL IV SCH (08:10)
[2020-04-14 08:37] LABS: ABG Base Excess -5.1 MMOL/L (-2.5-2.5); ABG HCO3 19.2 MMOL/L (20-26); ABG Oxygen Saturation 96.9 % (95-100); ABG PCO2 32.4 MM HG (35-48); ABG PO2 103.5 MM HG (80-95); ABG TCO2 20.2 MMOL/L (23-27)
[2020-04-14 08:39] LABS: Basophils # 0.1 10*3/uL (0.0-0.2); Basophils % 0.4 % (0.0-0.8); Eosinophils # 0.2 10*3/uL (0.0-0.87); Eosinophils % 1.5 % (0.00-10.9); Hematocrit 26.3 VOL% (35.7-47.0); Hemoglobin 8.2 GM/DL (12.0-16.0); Immature Granulocytes % 8.3 %; Immature Granulocytes Absolute 1.17 #; Lymphocytes # 0.8 10*3/uL (1.4-4.0); Lymphocytes % 5.5 % (21.3-54.2); Mean Corpuscular HGB Conc 31.2 GM/DL (32-36); Mean Corpuscular Volume 93.9 FL (87-102); Mean Platelet Volume 10.1 FL (9.6-12.0); Monocytes % 8.1 % (1.7-12.7); Neutrophils % 76.2 % (38.7-73.9); Platelet Count 409 T/CUMM (130-400); Red Cell Distribution Width 13.8 % (9.3-17.3); White Blood Count 14.1 T/CUMM (4-12)
[2020-04-14 09:03] LABS: Calcium 8.4 MG/DL (8.5-10.1); Osmolality,Calculated 287.8 MOS/KG (273-304)
[2020-04-14 09:55] LABS: Band Neutrophils 3 % (0-10); Eosinophils 4 % (0-10); Lymphocytes 8 % (20-55); Metamyelocytes 2 %; Myelocytes 1 %; Segmented Neutrophils 76 % (50-85); Total Cells Counted 100
[2020-04-14 09:56] LABS: Anisocytosis 1+; Platelet Estimate Normal; Polychromasia Slight
[2020-04-15] MEDS: INSULIN REGULAR 100 UNIT/ML SUBCUT SCH ×4 (01:47→17:50)
[2020-04-15 03:59] LABS: Basophils % 0.3 % (0.0-0.8); Eosinophils # 0.3 10*3/uL (0.0-0.87); Eosinophils % 2.2 % (0.00-10.9); Hematocrit 24.4 VOL% (35.7-47.0); Hemoglobin 7.5 GM/DL (12.0-16.0); Immature Granulocytes % 7.4 %; Immature Granulocytes Absolute 0.88 #; Lymphocytes # 0.8 10*3/uL (1.4-4.0); Lymphocytes % 6.6 % (21.3-54.2); Mean Corpuscular HGB Conc 30.7 GM/DL (32-36); Mean Corpuscular Volume 95.3 FL (87-102); Mean Platelet Volume 10.3 FL (9.6-12.0); Monocytes % 7.3 % (1.7-12.7); Neutrophils % 76.2 % (38.7-73.9); Platelet Count 428 T/CUMM (130-400); Red Blood Count 2.56 MC/CUMM (3.8-5.5); Red Cell Distribution Width 13.6 % (9.3-17.3); White Blood Count 11.9 T/CUMM (4-12)
[2020-04-15 04:15] LABS: Calcium 8.2 MG/DL (8.5-10.1); Osmolality,Calculated 289.1 MOS/KG (273-304)
[2020-04-15 05:09] LABS: Band Neutrophils 1 % (0-10); Eosinophils 3 % (0-10); Lymphocytes 8 % (20-55); Platelet Estimate Increased; Segmented Neutrophils 81 % (50-85); Total Cells Counted 100
[2020-04-15 05:11] LABS: Hypochromasia Slight
[2020-04-15 05:12] LABS: Polychromasia Slight
[2020-04-15] MEDS: HEPARIN DRIP 25,000 UNITS/500 ML PREMIX IV SCH ×3 (07:14→22:25)
[2020-04-15 07:39] LABS: ABG HCO3 16.8 MMOL/L (20-26); ABG Oxygen Saturation 98.1 % (95-100); ABG PCO2 31.8 MM HG (35-48); ABG PH 7.342 (7.35-7.45); ABG PO2 133.1 MM HG (80-95); ABG TCO2 17.8 MMOL/L (23-27)
[2020-04-15] MEDS: amLODIPine 10 MG TABLET PO SCH (08:30)
[2020-04-15] MEDS: ASPIRIN CHEW 81 MG TABLET PO SCH (08:30)
[2020-04-15] MEDS: PANTOPRAZOLE 40 MG VIAL IV SCH (08:30)
[2020-04-15] MEDS ORDERED: SODIUM CHLORIDE 0.9% 1,000 ML IV PRN (11:00)
[2020-04-15] MEDS: LEVOFLOXACIN INJ 500 MG in PREMIX 1 EACH IV SCH (15:49)
[2020-04-16] MEDS: INSULIN REGULAR 100 UNIT/ML SUBCUT SCH ×4 (02:14→17:46)
[2020-04-16] MEDS: PANTOPRAZOLE 40 MG VIAL IV SCH (08:00)
[2020-04-16] MEDS: ASPIRIN CHEW 81 MG TABLET PO SCH (08:00)
[2020-04-16] MEDS: amLODIPine 10 MG TABLET PO SCH (08:00)
[2020-04-16 08:05] LABS: ABG Base Excess -4.6 MMOL/L (-2.5-2.5); ABG HCO3 20.6 MMOL/L (20-26); ABG Oxygen Saturation 98.1 % (95-100); ABG PCO2 34.8 MM HG (35-48); ABG PH 7.369 (7.35-7.45); ABG TCO2 18.6 MMOL/L (23-27)
[2020-04-16 08:07] LABS: Basophils # 0.1 10*3/uL (0.0-0.2); Basophils % 0.4 % (0.0-0.8); Eosinophils # 0.3 10*3/uL (0.0-0.87); Hematocrit 27.6 VOL% (35.7-47.0); Hemoglobin 8.9 GM/DL (12.0-16.0); Immature Granulocytes % 6.9 %; Immature Granulocytes Absolute 0.89 #; Lymphocytes # 0.5 10*3/uL (1.4-4.0); Lymphocytes % 4.2 % (21.3-54.2); Mean Corpuscular HGB Conc 32.2 GM/DL (32-36); Mean Corpuscular Volume 93.6 FL (87-102); Mean Platelet Volume 9.9 FL (9.6-12.0); Monocytes % 8.2 % (1.7-12.7); Neutrophils % 78.3 % (38.7-73.9); Platelet Count 439 T/CUMM (130-400); Red Blood Count 2.95 MC/CUMM (3.8-5.5); Red Cell Distribution Width 13.3 % (9.3-17.3); White Blood Count 12.9 T/CUMM (4-12)
[2020-04-16 08:21] LABS: Albumin 1.6 G/DL (3.4-5.0); Bilirubin,Total 0.5 MG/DL (0.2-1.0); Calcium 8.2 MG/DL (8.5-10.1); Osmolality,Calculated 273.2 MOS/KG (273-304)
[2020-04-16 09:16] LABS: Band Neutrophils 1 % (0-10); Eosinophils 1 % (0-10); Lymphocytes 10 % (20-55); Metamyelocytes 3 %; Platelet Estimate Normal; Segmented Neutrophils 79 % (50-85); Total Cells Counted 100
[2020-04-16 09:17] LABS: Anisocytosis Slight; Macrocytosis Slight
[2020-04-16 13:00] LABS: Apearance,Urine CLOUDY (Clear); Bacteria,Urine Many /HPF (Few); Bilirubin,Urine Negative (Negative); Blood, Urine Small mg/dL (Negative); Glucose,Urine (UA) Negative (Negative); Ketones,Urine Negative (Negative); Mucus,Urine Many /LPF (Occasional); Nitrite,Urine Negative (Negative); Protein,Urine 100 MG/DL; RBC,Urine 1280 /HPF (0-4); Squamous Epithelial Cell,Urine Few /HPF (0-10); Urine Color Yellow (Yellow); Urine Specific Gravity 1.011 (1.001-1.035); Urine Urobilinogen < 2.0 EU/DL (0.2-1.0); WBC,Urine 9809 /HPF (0-6)
[2020-04-16] MEDS: fentaNYL INJ 1,250 MCG in SODIUM CHLORIDE 0.9% 225 ML IV PRN ×2 (15:40→22:02)
[2020-04-16] MEDS: HEPARIN DRIP 25,000 UNITS/500 ML PREMIX IV SCH ×2 (15:40→17:44)
[2020-04-16] MEDS: FLUCONAZOLE INJ 200 MG in PREMIX 1 EACH IV SCH (16:50)
[2020-04-17] MEDS: INSULIN REGULAR 100 UNIT/ML SUBCUT SCH ×4 (00:42→17:38)
[2020-04-17 04:43] LABS: Basophils # 0.1 10*3/uL (0.0-0.2); Basophils % 0.4 % (0.0-0.8); Eosinophils # 0.2 10*3/uL (0.0-0.87); Eosinophils % 1.9 % (0.00-10.9); Hematocrit 28.3 VOL% (35.7-47.0); Hemoglobin 8.8 GM/DL (12.0-16.0); Immature Granulocytes % 7.8 %; Lymphocytes # 1.2 10*3/uL (1.4-4.0); Mean Corpuscular HGB Conc 31.1 GM/DL (32-36); Mean Corpuscular Volume 94.3 FL (87-102); Mean Platelet Volume 9.6 FL (9.6-12.0); Monocytes % 9.8 % (1.7-12.7); Neutrophils % 71.1 % (38.7-73.9); Platelet Count 491 T/CUMM (130-400); Red Cell Distribution Width 13.3 % (9.3-17.3); White Blood Count 12.8 T/CUMM (4-12)
[2020-04-17] MEDS: HEPARIN DRIP 25,000 UNITS/500 ML PREMIX IV SCH ×2 (04:46→18:34)
[2020-04-17] MEDS: fentaNYL INJ 1,250 MCG in SODIUM CHLORIDE 0.9% 225 ML IV PRN ×4 (04:48→22:00)
[2020-04-17 04:59] LABS: Calcium 8.4 MG/DL (8.5-10.1); Osmolality,Calculated 274.4 MOS/KG (273-304)
[2020-04-17 07:06] LABS: Band Neutrophils 2 % (0-10); Eosinophils 2 % (0-10); Lymphocytes 10 % (20-55); Metamyelocytes 2 %; Platelet Estimate Normal; Segmented Neutrophils 68 % (50-85); Total Cells Counted 100
[2020-04-17 07:07] LABS: Anisocytosis 2+; Macrocytosis 1+; Polychromasia Slight
[2020-04-17] MEDS: amLODIPine 10 MG TABLET PO SCH (08:55)
[2020-04-17] MEDS: ASPIRIN CHEW 81 MG TABLET PO SCH (08:55)
[2020-04-17] MEDS: PANTOPRAZOLE 40 MG VIAL IV SCH (08:57)
[2020-04-17 11:00] LABS: ABG Base Excess -7.4 MMOL/L (-2.5-2.5); ABG HCO3 18.4 MMOL/L (20-26); ABG Oxygen Saturation 98.3 % (95-100); ABG PCO2 36.1 MM HG (35-48); ABG PH 7.311 (7.35-7.45); ABG TCO2 16.9 MMOL/L (23-27)
[2020-04-17] MEDS: FLUCONAZOLE INJ 200 MG in PREMIX 1 EACH IV SCH (16:15)
[2020-04-17] MEDS: LEVOFLOXACIN INJ 500 MG in PREMIX 1 EACH IV SCH (16:15)
[2020-04-18] MEDS: INSULIN REGULAR 100 UNIT/ML SUBCUT SCH ×4 (00:18→18:44)
[2020-04-18] MEDS: fentaNYL INJ 1,250 MCG in SODIUM CHLORIDE 0.9% 225 ML IV PRN ×5 (02:05→22:38)
[2020-04-18 04:18] LABS: Basophils % 0.3 % (0.0-0.8); Eosinophils # 0.2 10*3/uL (0.0-0.87); Eosinophils % 1.3 % (0.00-10.9); Hematocrit 24.7 VOL% (35.7-47.0); Hemoglobin 7.8 GM/DL (12.0-16.0); Immature Granulocytes % 6.3 %; Immature Granulocytes Absolute 0.73 #; Lymphocytes # 0.7 10*3/uL (1.4-4.0); Lymphocytes % 5.8 % (21.3-54.2); Mean Corpuscular HGB Conc 31.6 GM/DL (32-36); Mean Corpuscular Volume 94.3 FL (87-102); Mean Platelet Volume 9.9 FL (9.6-12.0); Monocytes % 7.6 % (1.7-12.7); Neutrophils % 78.7 % (38.7-73.9); Platelet Count 413 T/CUMM (130-400); Red Blood Count 2.62 MC/CUMM (3.8-5.5); Red Cell Distribution Width 13.2 % (9.3-17.3); White Blood Count 11.7 T/CUMM (4-12)
[2020-04-18 04:37] LABS: ABG Base Excess -8.3 MMOL/L (-2.5-2.5); ABG HCO3 17.7 MMOL/L (20-26); ABG Oxygen Saturation 98.1 % (95-100); ABG PH 7.287 (7.35-7.45); ABG TCO2 16.7 MMOL/L (23-27); Allen Test Positive; Pt O2 Delivery Device Ventilator
[2020-04-18 04:41] LABS: Calcium 7.9 MG/DL (8.5-10.1); Osmolality,Calculated 271.8 MOS/KG (273-304)
[2020-04-18 05:02] LABS: Band Neutrophils 2 % (0-10); Lymphocytes 2 % (20-55); Platelet Estimate Adequate; Segmented Neutrophils 89 % (50-85); Total Cells Counted 100
[2020-04-18 05:03] LABS: Hypochromasia 1+; Macrocytosis Slight
[2020-04-18] MEDS: DEXTROSE 10% 250 ML BAG IV PRN (05:24)
[2020-04-18] MEDS: ASPIRIN CHEW 81 MG TABLET PO SCH (08:02)
[2020-04-18] MEDS: PANTOPRAZOLE 40 MG VIAL IV SCH (08:03)
[2020-04-18] MEDS: amLODIPine 10 MG TABLET PO SCH (08:03)
[2020-04-18] MEDS: HEPARIN DRIP 25,000 UNITS/500 ML PREMIX IV SCH ×2 (10:38→22:37)
[2020-04-18] MEDS ORDERED: GENTAMICIN INJ 160 MG in SODIUM CHLORIDE 0.9% 100 ML IV PRN (10:54)
[2020-04-18] MEDS ORDERED: GENTAMICIN INJ 240 MG in SODIUM CHLORIDE 0.9% 100 ML IV ONE ×2 (15:00→18:00)
[2020-04-18] MEDS: FLUCONAZOLE INJ 200 MG in PREMIX 1 EACH IV SCH (15:11)
[2020-04-19] MEDS: INSULIN REGULAR 100 UNIT/ML SUBCUT SCH ×4 (01:05→18:58)
[2020-04-19] MEDS: fentaNYL INJ 2,500 MCG in SODIUM CHLORIDE 0.9% 450 ML IV PRN ×2 (01:26→14:12)
[2020-04-19 04:15] LABS: ABG Base Excess -5.5 MMOL/L (-2.5-2.5); ABG HCO3 19.9 MMOL/L (20-26); ABG Oxygen Saturation 98.9 % (95-100); ABG PCO2 34.4 MM HG (35-48); ABG PH 7.358 (7.35-7.45); ABG TCO2 17.8 MMOL/L (23-27); Allen Test Positive; Pt O2 Delivery Device Ventilator
[2020-04-19 05:08] LABS: Basophils % 0.3 % (0.0-0.8); Eosinophils % 0.3 % (0.00-10.9); Hematocrit 23.3 VOL% (35.7-47.0); Hemoglobin 7.5 GM/DL (12.0-16.0); Immature Granulocytes % 5.1 %; Immature Granulocytes Absolute 0.59 #; Lymphocytes # 0.5 10*3/uL (1.4-4.0); Lymphocytes % 4.3 % (21.3-54.2); Mean Corpuscular HGB Conc 32.2 GM/DL (32-36); Mean Corpuscular Volume 92.8 FL (87-102); Mean Platelet Volume 9.6 FL (9.6-12.0); Monocytes % 8.3 % (1.7-12.7); Neutrophils % 81.7 % (38.7-73.9); Platelet Count 325 T/CUMM (130-400); Red Blood Count 2.51 MC/CUMM (3.8-5.5); White Blood Count 11.5 T/CUMM (4-12)
[2020-04-19 05:26] LABS: Albumin 1.5 G/DL (3.4-5.0); Calcium 7.9 MG/DL (8.5-10.1); Osmolality,Calculated 268.5 MOS/KG (273-304); Total Protein 5.7 G/DL (6.4-8.3)
[2020-04-19 05:28] LABS: Eosinophils 2 % (0-10); Hypochromasia 2+; Lymphocytes 4 % (20-55); Microcytosis 1+; Platelet Estimate Adequate; Segmented Neutrophils 87 % (50-85); Total Cells Counted 100
[2020-04-19] MEDS: PANTOPRAZOLE 40 MG VIAL IV SCH (08:35)
[2020-04-19] MEDS: amLODIPine 10 MG TABLET PO SCH (08:35)
[2020-04-19] MEDS: ASPIRIN CHEW 81 MG TABLET PO SCH (08:35)
[2020-04-19] MEDS: HEPARIN DRIP 25,000 UNITS/500 ML PREMIX IV SCH ×2 (13:01→20:06)
[2020-04-19] MEDS: LEVOFLOXACIN INJ 500 MG in PREMIX 1 EACH IV SCH (16:14)
[2020-04-19] MEDS: FLUCONAZOLE INJ 200 MG in PREMIX 1 EACH IV SCH (16:15)
[2020-04-20] MEDS: fentaNYL INJ 2,500 MCG in SODIUM CHLORIDE 0.9% 450 ML IV PRN ×3 (00:39→16:26)
[2020-04-20] MEDS: INSULIN REGULAR 100 UNIT/ML SUBCUT SCH ×5 (01:04→23:20)
[2020-04-20 03:59] LABS: ABG Base Excess -7.4 MMOL/L (-2.5-2.5); ABG HCO3 18.7 MMOL/L (20-26); ABG Oxygen Saturation 93.2 % (95-100); ABG PCO2 40.3 MM HG (35-48); ABG PH 7.284 (7.35-7.45); ABG PO2 74.8 MM HG (80-95); ABG TCO2 19.9 MMOL/L (23-27); Allen Test Positive; Pt O2 Delivery Device Ventilator
[2020-04-20 04:33] LABS: Basophils % 0.3 % (0.0-0.8); Eosinophils # 0.2 10*3/uL (0.0-0.87); Hematocrit 23.2 VOL% (35.7-47.0); Immature Granulocytes % 4.4 %; Immature Granulocytes Absolute 0.47 #; Lymphocytes # 0.8 10*3/uL (1.4-4.0); Lymphocytes % 7.5 % (21.3-54.2); Mean Corpuscular HGB Conc 30.2 GM/DL (32-36); Mean Corpuscular Volume 98.3 FL (87-102); Mean Platelet Volume 9.9 FL (9.6-12.0); Monocytes % 8.6 % (1.7-12.7); Neutrophils % 77.2 % (38.7-73.9); Platelet Count 333 T/CUMM (130-400); Red Blood Count 2.36 MC/CUMM (3.8-5.5); White Blood Count 10.6 T/CUMM (4-12)
[2020-04-20 04:45] LABS: Albumin 1.4 G/DL (3.4-5.0); Bilirubin,Total 0.9 MG/DL (0.2-1.0); Calcium 7.9 MG/DL (8.5-10.1); Osmolality,Calculated 271.5 MOS/KG (273-304); Total Protein 5.6 G/DL (6.4-8.3)
[2020-04-20] MEDS: amLODIPine 10 MG TABLET PO SCH (09:19)
[2020-04-20] MEDS: ASPIRIN CHEW 81 MG TABLET PO SCH (09:19)
[2020-04-20] MEDS: PANTOPRAZOLE 40 MG VIAL IV SCH (09:19)
[2020-04-20] MEDS: HEPARIN DRIP 25,000 UNITS/500 ML PREMIX IV SCH (15:45)
[2020-04-20] MEDS ORDERED: ALTEPLASE 2 MG VIAL INTRACATH ONE (16:36)
[2020-04-20] MEDS ORDERED: GENTAMICIN INJ 160 MG in SODIUM CHLORIDE 0.9% 100 ML IV ONE (17:00)
[2020-04-20] MEDS: FLUCONAZOLE INJ 200 MG in PREMIX 1 EACH IV SCH (19:50)
[2020-04-21] MEDS ORDERED: NOREPINEPHRINE 4 MG/4 ML VIAL IV ONE (00:36)
[2020-04-21] MEDS: NOREPINEPHRINE 8 MG in SODIUM CHLORIDE 0.9% 242 ML IV PRN ×2 (00:42→14:08)
[2020-04-21] MEDS: fentaNYL INJ 2,500 MCG in SODIUM CHLORIDE 0.9% 450 ML IV PRN ×3 (01:45→18:53)
[2020-04-21 04:20] LABS: ABG Base Excess -11.6 MMOL/L (-2.5-2.5); ABG HCO3 15.4 MMOL/L (20-26); ABG Oxygen Saturation 98.5 % (95-100); ABG PCO2 48.6 MM HG (35-48); ABG TCO2 16.1 MMOL/L (23-27); Allen Test Positive; Pt O2 Delivery Device Ventilator
[2020-04-21 04:22] LABS: ABG PH 7.157 (7.35-7.45)
[2020-04-21 05:06] LABS: Basophils # 0.1 10*3/uL (0.0-0.2); Basophils % 0.2 % (0.0-0.8); Eosinophils # 0.1 10*3/uL (0.0-0.87); Eosinophils % 0.2 % (0.00-10.9); Hematocrit 25.9 VOL% (35.7-47.0); Hemoglobin 7.9 GM/DL (12.0-16.0); Immature Granulocytes Absolute 0.51 #; Lymphocytes # 0.9 10*3/uL (1.4-4.0); Lymphocytes % 3.4 % (21.3-54.2); Mean Corpuscular HGB Conc 30.5 GM/DL (32-36); Mean Corpuscular Volume 97.4 FL (87-102); Mean Platelet Volume 9.8 FL (9.6-12.0); Monocytes % 6.1 % (1.7-12.7); Neutrophils % 88.1 % (38.7-73.9); Platelet Count 290 T/CUMM (130-400); Red Blood Count 2.66 MC/CUMM (3.8-5.5); White Blood Count 25.7 T/CUMM (4-12)
[2020-04-21] MEDS: HEPARIN DRIP 25,000 UNITS/500 ML PREMIX IV SCH ×2 (05:07→18:23)
[2020-04-21 05:41] LABS: Eosinophils 1 % (0-10); Hypochromasia 1+; Lymphocytes 2 % (20-55); Platelet Estimate Adequate; Segmented Neutrophils 93 % (50-85); Total Cells Counted 100
[2020-04-21 05:54] LABS: Albumin 1.6 G/DL (3.4-5.0); Calcium 7.4 MG/DL (8.5-10.1); Osmolality,Calculated 269.8 MOS/KG (273-304); Total Protein 6.3 G/DL (6.4-8.3)
[2020-04-21 05:55] LABS: Calcium 7.2 MG/DL (8.5-10.1); Osmolality,Calculated 273.5 MOS/KG (273-304); Prealbumin 19.6 MG/DL (20-40)
[2020-04-21] MEDS: INSULIN REGULAR 100 UNIT/ML SUBCUT SCH ×3 (06:33→18:23)
[2020-04-21] MEDS: PANTOPRAZOLE 40 MG VIAL IV SCH (08:02)
[2020-04-21] MEDS: amLODIPine 10 MG TABLET PO SCH (08:03)
[2020-04-21] MEDS: ASPIRIN CHEW 81 MG TABLET PO SCH (08:03)
[2020-04-21] MEDS ORDERED: SODIUM BICARBONATE 50 MEQ/50 ML VIAL IV ONE (11:09)
[2020-04-21] MEDS ORDERED: GENTAMICIN INJ 160 MG in SODIUM CHLORIDE 0.9% 100 ML IV ONE (12:00)
[2020-04-21] MEDS: HEPARIN INJ 25,000 UNIT in SODIUM CHLORIDE 0.9% 495 ML IV SCH (13:44)
[2020-04-21] MEDS: FLUCONAZOLE INJ 200 MG in PREMIX 1 EACH IV SCH (20:00)
[2020-04-22] MEDS: INSULIN REGULAR 100 UNIT/ML SUBCUT SCH ×4 (00:17→17:33)
[2020-04-22] MEDS: fentaNYL INJ 2,500 MCG in SODIUM CHLORIDE 0.9% 450 ML IV PRN ×5 (00:59→19:14)
[2020-04-22 04:30] LABS: Basophils # 0.1 10*3/uL (0.0-0.2); Basophils % 0.4 % (0.0-0.8); Eosinophils % 0.2 % (0.00-10.9); Hematocrit 24.4 VOL% (35.7-47.0); Hemoglobin 7.3 GM/DL (12.0-16.0); Immature Granulocytes % 2.2 %; Immature Granulocytes Absolute 0.42 #; Lymphocytes # 0.7 10*3/uL (1.4-4.0); Lymphocytes % 3.9 % (21.3-54.2); Mean Corpuscular HGB Conc 29.9 GM/DL (32-36); Mean Corpuscular Volume 100.4 FL (87-102); Mean Platelet Volume 9.8 FL (9.6-12.0); Monocytes % 7.8 % (1.7-12.7); Neutrophils % 85.5 % (38.7-73.9); Platelet Count 255 T/CUMM (130-400); Red Blood Count 2.43 MC/CUMM (3.8-5.5); Red Cell Distribution Width 13.2 % (9.3-17.3); White Blood Count 19.1 T/CUMM (4-12)
[2020-04-22 04:39] LABS: ABG Base Excess -9.1 MMOL/L (-2.5-2.5); ABG HCO3 18.5 MMOL/L (20-26); ABG Oxygen Saturation 97.6 % (95-100); ABG PO2 113.5 MM HG (80-95); Allen Test Positive; Pt O2 Delivery Device Ventilator
[2020-04-22 04:40] LABS: ABG PH 7.194 (7.35-7.45)
[2020-04-22 04:56] LABS: Eosinophils 2 % (0-10); Hypochromasia 1+; Lymphocytes 4 % (20-55); Platelet Estimate Adequate; Segmented Neutrophils 90 % (50-85); Total Cells Counted 100
[2020-04-22 04:57] LABS: Albumin 1.6 G/DL (3.4-5.0); Bilirubin,Total 1.3 MG/DL (0.2-1.0); Calcium 7.7 MG/DL (8.5-10.1); Microcytosis Slight; Osmolality,Calculated 267.5 MOS/KG (273-304); Total Protein 6.1 G/DL (6.4-8.3)
[2020-04-22] MEDS: HEPARIN INJ 25,000 UNIT in SODIUM CHLORIDE 0.9% 495 ML IV SCH ×2 (05:14→17:56)
[2020-04-22] MEDS ORDERED: SODIUM BICARBONATE 50 MEQ/50 ML VIAL IV ONE ×2 (05:52→05:53)
[2020-04-22] MEDS: PANTOPRAZOLE 40 MG VIAL IV SCH (08:32)
[2020-04-22] MEDS: ASPIRIN CHEW 81 MG TABLET PO SCH (08:32)
[2020-04-22] MEDS: amLODIPine 10 MG TABLET PO SCH (10:35)
[2020-04-22] MEDS ORDERED: GENTAMICIN INJ 120 MG in SODIUM CHLORIDE 0.9% 100 ML IV PRN (12:00)
[2020-04-22] MEDS: HEPARIN DRIP 25,000 UNITS/500 ML PREMIX IV SCH (17:09)
[2020-04-22] MEDS: FLUCONAZOLE INJ 200 MG in PREMIX 1 EACH IV SCH (19:25)
[2020-04-22] MEDS: NOREPINEPHRINE 8 MG in SODIUM CHLORIDE 0.9% 242 ML IV PRN (21:51)
[2020-04-23] MEDS: fentaNYL INJ 2,500 MCG in SODIUM CHLORIDE 0.9% 450 ML IV PRN ×4 (00:30→21:21)
[2020-04-23] MEDS: INSULIN REGULAR 100 UNIT/ML SUBCUT SCH ×5 (00:52→23:58)
[2020-04-23 04:06] LABS: ABG Base Excess -8.6 MMOL/L (-2.5-2.5); ABG HCO3 17.3 MMOL/L (20-26); ABG PCO2 55.3 MM HG (35-48); ABG PO2 65.7 MM HG (80-95); ABG TCO2 19.3 MMOL/L (23-27)
[2020-04-23 04:43] LABS: ABG PH 7.165 (7.35-7.45)
[2020-04-23 05:25] LABS: Basophils # 0.1 10*3/uL (0.0-0.2); Basophils % 0.4 % (0.0-0.8); Eosinophils # 0.1 10*3/uL (0.0-0.87); Eosinophils % 0.3 % (0.00-10.9); Hematocrit 23.4 VOL% (35.7-47.0); Immature Granulocytes % 2.3 %; Lymphocytes # 0.5 10*3/uL (1.4-4.0); Lymphocytes % 2.8 % (21.3-54.2); Mean Corpuscular HGB Conc 29.9 GM/DL (32-36); Mean Corpuscular Volume 99.2 FL (87-102); Monocytes % 6.2 % (1.7-12.7); Platelet Count 216 T/CUMM (130-400); Red Blood Count 2.36 MC/CUMM (3.8-5.5); Red Cell Distribution Width 13.2 % (9.3-17.3); White Blood Count 17.4 T/CUMM (4-12)
[2020-04-23 05:55] LABS: Calcium 7.8 MG/DL (8.5-10.1); Osmolality,Calculated 274.8 MOS/KG (273-304)
[2020-04-23 06:10] LABS: Eosinophils 1 % (0-10); Hypochromasia Slight; Lymphocytes 1 % (20-55); Metamyelocytes 1 %; Segmented Neutrophils 94 % (50-85); Total Cells Counted 100
[2020-04-23 06:11] LABS: Microcytosis Slight; Platelet Estimate Normal
[2020-04-23] MEDS: amLODIPine 10 MG TABLET PO SCH (07:57)
[2020-04-23] MEDS: ASPIRIN CHEW 81 MG TABLET PO SCH (08:00)
[2020-04-23] MEDS: PANTOPRAZOLE 40 MG VIAL IV SCH (08:00)
[2020-04-23] MEDS: HEPARIN INJ 25,000 UNIT in SODIUM CHLORIDE 0.9% 495 ML IV SCH ×3 (09:42→23:58)
[2020-04-23] MEDS ORDERED: SODIUM CHLORIDE 0.9% 1,000 ML IV PRN (11:47)
[2020-04-23] MEDS: SEVELAMER CARBONATE POWDER 2.4 GM PACK PO SCH ×2 (14:40→21:20)
[2020-04-23] MEDS: HEPARIN DRIP 25,000 UNITS/500 ML PREMIX IV SCH (18:45)
[2020-04-23] MEDS: FLUCONAZOLE INJ 200 MG in PREMIX 1 EACH IV SCH (20:18)
[2020-04-23 20:53] LABS: Hematocrit 24.3 VOL% (35.7-47.0); Hemoglobin 7.4 GM/DL (12.0-16.0)
[2020-04-24] MEDS: NOREPINEPHRINE 8 MG in SODIUM CHLORIDE 0.9% 242 ML IV PRN (01:07)
[2020-04-24] MEDS: ACETAMINOPHEN 325 MG/10.15 ML UDCUP PO PRN (01:57)
[2020-04-24] MEDS: fentaNYL INJ 2,500 MCG in SODIUM CHLORIDE 0.9% 450 ML IV PRN ×4 (04:15→22:06)
[2020-04-24 04:25] LABS: Allen Test Positive; Pt O2 Delivery Device Ventilator
[2020-04-24 04:26] LABS: ABG Base Excess -10.9 MMOL/L (-2.5-2.5); ABG HCO3 14.9 MMOL/L (20-26); ABG Oxygen Saturation 97.3 % (95-100); ABG PCO2 33.5 MM HG (35-48); ABG PH 7.266 (7.35-7.45); ABG PO2 107.2 MM HG (80-95); ABG TCO2 15.9 MMOL/L (23-27)
[2020-04-24 04:32] LABS: Basophils # 0.1 10*3/uL (0.0-0.2); Basophils % 0.4 % (0.0-0.8); Eosinophils # 0.3 10*3/uL (0.0-0.87); Eosinophils % 1.9 % (0.00-10.9); Hematocrit 23.7 VOL% (35.7-47.0); Hemoglobin 7.3 GM/DL (12.0-16.0); Immature Granulocytes % 4.5 %; Immature Granulocytes Absolute 0.75 #; Lymphocytes # 0.7 10*3/uL (1.4-4.0); Lymphocytes % 4.1 % (21.3-54.2); Mean Corpuscular HGB Conc 30.8 GM/DL (32-36); Mean Corpuscular Volume 95.2 FL (87-102); Mean Platelet Volume 10.1 FL (9.6-12.0); Monocytes % 6.3 % (1.7-12.7); Neutrophils % 82.8 % (38.7-73.9); Platelet Count 224 T/CUMM (130-400); Red Blood Count 2.49 MC/CUMM (3.8-5.5); Red Cell Distribution Width 14.1 % (9.3-17.3); White Blood Count 16.5 T/CUMM (4-12)
[2020-04-24 04:41] LABS: Calcium 8.1 MG/DL (8.5-10.1); Osmolality,Calculated 276.9 MOS/KG (273-304)
[2020-04-24] MEDS: INSULIN REGULAR 100 UNIT/ML SUBCUT SCH ×3 (06:31→18:05)
[2020-04-24 08:05] LABS: Band Neutrophils 1 % (0-10); Eosinophils 1 % (0-10); Hypochromasia Slight; Lymphocytes 6 % (20-55); Promyelocytes 1 %; Segmented Neutrophils 85 % (50-85); Total Cells Counted 100
[2020-04-24 08:06] LABS: Microcytosis Slight
[2020-04-24] MEDS: amLODIPine 10 MG TABLET PO SCH (09:19)
[2020-04-24] MEDS: PANTOPRAZOLE 40 MG VIAL IV SCH (09:19)
[2020-04-24] MEDS: SEVELAMER CARBONATE POWDER 2.4 GM PACK PO SCH ×3 (09:19→20:51)
[2020-04-24] MEDS: ASPIRIN CHEW 81 MG TABLET PO SCH (09:19)
[2020-04-24] MEDS: HEPARIN INJ 25,000 UNIT in SODIUM CHLORIDE 0.9% 495 ML IV SCH (13:41)
[2020-04-24] MEDS: HEPARIN DRIP 25,000 UNITS/500 ML PREMIX IV SCH (16:51)
[2020-04-24 23:03] LABS: PT Patient Result 10.5 SECS (9.8-11.9)
[2020-04-25] MEDS: INSULIN REGULAR 100 UNIT/ML SUBCUT SCH ×4 (00:40→18:03)
[2020-04-25] MEDS: HEPARIN INJ 25,000 UNIT in SODIUM CHLORIDE 0.9% 495 ML IV SCH ×2 (03:31→14:25)
[2020-04-25 03:40] LABS: ABG Base Excess -10.2 MMOL/L (-2.5-2.5); ABG HCO3 16.1 MMOL/L (20-26); ABG Oxygen Saturation 90.3 % (95-100); ABG PCO2 42.7 MM HG (35-48); ABG PO2 68.1 MM HG (80-95); ABG TCO2 16.5 MMOL/L (23-27); Allen Test Positive; Pt O2 Delivery Device Ventilator
[2020-04-25 04:33] LABS: Basophils # 0.1 10*3/uL (0.0-0.2); Basophils % 0.3 % (0.0-0.8); Eosinophils # 0.4 10*3/uL (0.0-0.87); Eosinophils % 2.3 % (0.00-10.9); Hematocrit 23.9 VOL% (35.7-47.0); Hemoglobin 7.1 GM/DL (12.0-16.0); Immature Granulocytes % 7.9 %; Immature Granulocytes Absolute 1.26 #; Lymphocytes # 0.7 10*3/uL (1.4-4.0); Lymphocytes % 4.6 % (21.3-54.2); Mean Corpuscular HGB Conc 29.7 GM/DL (32-36); Mean Corpuscular Volume 99.2 FL (87-102); Mean Platelet Volume 9.9 FL (9.6-12.0); NRBC # 0.02 10*3/uL; Neutrophils % 79.9 % (38.7-73.9); Platelet Count 241 T/CUMM (130-400); Red Blood Count 2.41 MC/CUMM (3.8-5.5); Red Cell Distribution Width 14.2 % (9.3-17.3); White Blood Count 15.9 T/CUMM (4-12)
[2020-04-25 04:51] LABS: Calcium 7.8 MG/DL (8.5-10.1); Osmolality,Calculated 280.9 MOS/KG (273-304)
[2020-04-25 05:46] LABS: Band Neutrophils 5 % (0-10); Eosinophils 2 % (0-10); Lymphocytes 10 % (20-55); Metamyelocytes 3 %; Myelocytes 1 %; Segmented Neutrophils 75 % (50-85); Total Cells Counted 100
[2020-04-25 05:47] LABS: Anisocytosis 1+; Platelet Estimate Normal
[2020-04-25] MEDS: fentaNYL INJ 2,500 MCG in SODIUM CHLORIDE 0.9% 450 ML IV PRN ×4 (07:00→23:05)
[2020-04-25] MEDS: amLODIPine 10 MG TABLET PO SCH (10:33)
[2020-04-25] MEDS: ASPIRIN CHEW 81 MG TABLET PO SCH (10:33)
[2020-04-25] MEDS: SEVELAMER CARBONATE POWDER 2.4 GM PACK PO SCH ×3 (10:34→21:15)
[2020-04-25] MEDS: PANTOPRAZOLE 40 MG VIAL IV SCH (10:34)
[2020-04-25] MEDS ORDERED: SODIUM CHLORIDE 0.9% 1,000 ML IV PRN (13:03)
[2020-04-26] MEDS: INSULIN REGULAR 100 UNIT/ML SUBCUT SCH ×4 (00:54→17:31)
[2020-04-26] MEDS: HEPARIN INJ 25,000 UNIT in SODIUM CHLORIDE 0.9% 495 ML IV SCH ×3 (02:53→14:51)
[2020-04-26 04:00] LABS: Basophils % 0.2 % (0.0-0.8); Eosinophils # 0.5 10*3/uL (0.0-0.87); Eosinophils % 3.1 % (0.00-10.9); Hematocrit 24.8 VOL% (35.7-47.0); Hemoglobin 7.7 GM/DL (12.0-16.0); Immature Granulocytes % 10.3 %; Immature Granulocytes Absolute 1.69 #; Lymphocytes # 0.5 10*3/uL (1.4-4.0); Lymphocytes % 3.2 % (21.3-54.2); Mean Corpuscular Volume 97.3 FL (87-102); Mean Platelet Volume 10.2 FL (9.6-12.0); Monocytes % 4.8 % (1.7-12.7); NRBC # 0.03 10*3/uL; Neutrophils % 78.4 % (38.7-73.9); Platelet Count 186 T/CUMM (130-400); Red Blood Count 2.55 MC/CUMM (3.8-5.5); Red Cell Distribution Width 14.6 % (9.3-17.3); White Blood Count 16.4 T/CUMM (4-12)
[2020-04-26 04:17] LABS: Calcium 7.8 MG/DL (8.5-10.1); Osmolality,Calculated 281.7 MOS/KG (273-304)
[2020-04-26 04:32] LABS: Band Neutrophils 6 % (0-10); Eosinophils 2 % (0-10); Lymphocytes 4 % (20-55); Metamyelocytes 2 %; Segmented Neutrophils 83 % (50-85); Total Cells Counted 100
[2020-04-26 04:33] LABS: Microcytosis Slight; Platelet Estimate Adequate; Polychromasia Slight
[2020-04-26 04:36] LABS: Allen Test Positive; Pt O2 Delivery Device Ventilator
[2020-04-26 04:38] LABS: ABG Base Excess -7.4 MMOL/L (-2.5-2.5); ABG HCO3 18.4 MMOL/L (20-26); ABG PCO2 40.1 MM HG (35-48); ABG TCO2 17.8 MMOL/L (23-27)
[2020-04-26] MEDS: fentaNYL INJ 2,500 MCG in SODIUM CHLORIDE 0.9% 450 ML IV PRN ×4 (05:06→23:20)
[2020-04-26] MEDS: amLODIPine 10 MG TABLET PO SCH ×2 (08:00→09:22)
[2020-04-26] MEDS: ASPIRIN CHEW 81 MG TABLET PO SCH (08:22)
[2020-04-26] MEDS: SEVELAMER CARBONATE POWDER 2.4 GM PACK PO SCH ×3 (09:22→20:30)
[2020-04-26] MEDS: PANTOPRAZOLE 40 MG VIAL IV SCH (09:22)
[2020-04-26] MEDS ORDERED: fentaNYL INJ 2,500 MCG in SODIUM CHLORIDE 0.9% 500 ML IV PRN (09:39)
[2020-04-26] MEDS: MEROPENEM 500 MG in SODIUM CHLORIDE 0.9% 100 ML IV SCH (12:45)
[2020-04-26] MEDS: ACETAMINOPHEN 325 MG/10.15 ML UDCUP PO PRN (21:00)
[2020-04-27] MEDS: INSULIN REGULAR 100 UNIT/ML SUBCUT SCH ×5 (00:03→23:44)
[2020-04-27] MEDS: HEPARIN INJ 25,000 UNIT in SODIUM CHLORIDE 0.9% 495 ML IV SCH ×3 (02:54→23:51)
[2020-04-27 04:38] LABS: Basophils # 0.1 10*3/uL (0.0-0.2); Basophils % 0.4 % (0.0-0.8); Eosinophils # 0.4 10*3/uL (0.0-0.87); Eosinophils % 2.4 % (0.00-10.9); Hematocrit 25.6 VOL% (35.7-47.0); Hemoglobin 7.8 GM/DL (12.0-16.0); Immature Granulocytes Absolute 2.19 #; Lymphocytes # 0.6 10*3/uL (1.4-4.0); Lymphocytes % 3.9 % (21.3-54.2); Mean Corpuscular HGB Conc 30.5 GM/DL (32-36); Mean Corpuscular Volume 97.7 FL (87-102); Mean Platelet Volume 10.4 FL (9.6-12.0); Monocytes % 4.7 % (1.7-12.7); NRBC # 0.06 10*3/uL; Neutrophils % 73.6 % (38.7-73.9); Platelet Count 216 T/CUMM (130-400); Red Blood Count 2.62 MC/CUMM (3.8-5.5); White Blood Count 14.6 T/CUMM (4-12)
[2020-04-27 04:48] LABS: Allen Test Positive; Pt O2 Delivery Device Ventilator
[2020-04-27 04:51] LABS: Calcium 7.7 MG/DL (8.5-10.1); Osmolality,Calculated 283.7 MOS/KG (273-304)
[2020-04-27 04:57] LABS: ABG Base Excess -10.2 MMOL/L (-2.5-2.5); ABG HCO3 16.2 MMOL/L (20-26); ABG Oxygen Saturation 98.9 % (95-100); ABG PCO2 38.5 MM HG (35-48); ABG TCO2 15.7 MMOL/L (23-27)
[2020-04-27 05:04] LABS: Band Neutrophils 5 % (0-10); Eosinophils 3 % (0-10); Lymphocytes 4 % (20-55); Metamyelocytes 2 %; Myelocytes 3 %; Segmented Neutrophils 77 % (50-85); Total Cells Counted 100
[2020-04-27 05:05] LABS: Hypochromasia 1+; Microcytosis Slight; Platelet Estimate Normal; Polychromasia Slight
[2020-04-27] MEDS: fentaNYL INJ 2,500 MCG in SODIUM CHLORIDE 0.9% 450 ML IV PRN ×4 (07:00→23:52)
[2020-04-27] MEDS: amLODIPine 10 MG TABLET PO SCH (08:05)
[2020-04-27] MEDS: SEVELAMER CARBONATE POWDER 2.4 GM PACK PO SCH ×3 (08:06→20:59)
[2020-04-27] MEDS: PANTOPRAZOLE 40 MG VIAL IV SCH (08:38)
[2020-04-27] MEDS: ASPIRIN CHEW 81 MG TABLET PO SCH (11:35)
[2020-04-27] MEDS: MEROPENEM 500 MG in SODIUM CHLORIDE 0.9% 100 ML IV SCH (12:54)
[2020-04-27] MEDS ORDERED: DEXAMETHASONE 4 MG/1 ML VIAL IV SCH (15:30)
[2020-04-27] MEDS: DEXAMETHASONE 4 MG/1 ML VIAL IV SCH (15:39)
[2020-04-28 03:19] LABS: Allen Test Positive; Pt O2 Delivery Device Ventilator
[2020-04-28 03:20] LABS: ABG HCO3 16.2 MMOL/L (20-26); ABG Oxygen Saturation 77.4 % (95-100); ABG PCO2 43.9 MM HG (35-48); ABG PO2 47.5 MM HG (80-95); ABG TCO2 16.8 MMOL/L (23-27)
[2020-04-28 03:24] LABS: ABG PH 7.208 (7.35-7.45)
[2020-04-28 03:51] LABS: Allen Test Positive; Pt O2 Delivery Device Ventilator
[2020-04-28 03:52] LABS: ABG Base Excess -10.3 MMOL/L (-2.5-2.5); ABG HCO3 16.1 MMOL/L (20-26); ABG Oxygen Saturation 99.3 % (95-100); ABG PCO2 36.7 MM HG (35-48); ABG PH 7.251 (7.35-7.45); ABG TCO2 15.4 MMOL/L (23-27)
[2020-04-28 05:26] LABS: Basophils % 0.2 % (0.0-0.8); Eosinophils % 0.1 % (0.00-10.9); Hematocrit 24.6 VOL% (35.7-47.0); Hemoglobin 7.4 GM/DL (12.0-16.0); Immature Granulocytes % 10.9 %; Immature Granulocytes Absolute 1.96 #; Lymphocytes # 0.6 10*3/uL (1.4-4.0); Lymphocytes % 3.5 % (21.3-54.2); Mean Corpuscular HGB Conc 30.1 GM/DL (32-36); Mean Corpuscular Volume 98.8 FL (87-102); Mean Platelet Volume 10.8 FL (9.6-12.0); Monocytes % 4.9 % (1.7-12.7); NRBC # 0.04 10*3/uL; Neutrophils % 80.4 % (38.7-73.9); Platelet Count 180 T/CUMM (130-400); Red Blood Count 2.49 MC/CUMM (3.8-5.5); Red Cell Distribution Width 15.4 % (9.3-17.3); White Blood Count 17.9 T/CUMM (4-12)
[2020-04-28 05:41] LABS: Calcium 7.7 MG/DL (8.5-10.1); Osmolality,Calculated 284.7 MOS/KG (273-304)
[2020-04-28] MEDS: fentaNYL INJ 2,500 MCG in SODIUM CHLORIDE 0.9% 450 ML IV PRN ×2 (05:48→14:01)
[2020-04-28] MEDS: INSULIN REGULAR 100 UNIT/ML SUBCUT SCH ×4 (06:21→23:13)
[2020-04-28 06:24] LABS: Band Neutrophils 5 % (0-10); Hypochromasia 2+; Lymphocytes 5 % (20-55); Microcytosis Slight; Platelet Estimate Adequate; Segmented Neutrophils 87 % (50-85); Total Cells Counted 100
[2020-04-28] MEDS: amLODIPine 10 MG TABLET PO SCH (08:27)
[2020-04-28] MEDS: PANTOPRAZOLE 40 MG VIAL IV SCH (08:27)
[2020-04-28] MEDS: SEVELAMER CARBONATE POWDER 2.4 GM PACK PO SCH ×3 (08:27→21:21)
[2020-04-28] MEDS: ASPIRIN CHEW 81 MG TABLET PO SCH (08:27)
[2020-04-28] MEDS ORDERED: ZINC OXIDE PASTE 113 GM TUBE TOP PRN (10:03)
[2020-04-28] MEDS ORDERED: BUPIVACAINE MPF 0.25% 30 ML VIAL ONE (10:10)
[2020-04-28] MEDS ORDERED: COLISTIMETHATE 300 MG in SODIUM CHLORIDE 0.9% 100 ML IV ONE (12:00)
[2020-04-28] MEDS ORDERED: propofoL 200 MG/20 ML VIAL IV ONE (13:29)
[2020-04-28] MEDS ORDERED: ROCURONIUM 100 MG/10 ML VIAL IV ONE (13:29)
[2020-04-28] MEDS ORDERED: ETOMIDATE 40 MG/20 ML VIAL IV ONE (13:29)
[2020-04-28] MEDS ORDERED: SEVOFLURANE 1 UNIT/15 MINUTE INH ONE (13:29)
[2020-04-28] MEDS: HEPARIN INJ 25,000 UNIT in SODIUM CHLORIDE 0.9% 495 ML IV SCH ×2 (14:00→21:59)
[2020-04-28] MEDS: MEROPENEM 500 MG in SODIUM CHLORIDE 0.9% 100 ML IV SCH (14:02)
[2020-04-28] MEDS: DEXAMETHASONE 4 MG/1 ML VIAL IV SCH (14:52)
[2020-04-29 02:59] LABS: Basophils # 0.1 10*3/uL (0.0-0.2); Basophils % 0.3 % (0.0-0.8); Hematocrit 25.7 VOL% (35.7-47.0); Hemoglobin 7.6 GM/DL (12.0-16.0); Immature Granulocytes % 10.9 %; Immature Granulocytes Absolute 2.47 #; Lymphocytes # 1.1 10*3/uL (1.4-4.0); Lymphocytes % 4.6 % (21.3-54.2); Mean Corpuscular HGB Conc 29.6 GM/DL (32-36); Mean Corpuscular Volume 98.5 FL (87-102); Mean Platelet Volume 10.7 FL (9.6-12.0); NRBC # 0.11 10*3/uL; Neutrophils % 79.2 % (38.7-73.9); Platelet Count 254 T/CUMM (130-400); Red Blood Count 2.61 MC/CUMM (3.8-5.5); Red Cell Distribution Width 15.6 % (9.3-17.3); White Blood Count 22.6 T/CUMM (4-12)
[2020-04-29 03:07] LABS: Osmolality,Calculated 287.7 MOS/KG (273-304)
[2020-04-29 04:11] LABS: ABG Base Excess -11.5 MMOL/L (-2.5-2.5); ABG HCO3 15.3 MMOL/L (20-26); ABG Oxygen Saturation 98.8 % (95-100); ABG PCO2 37.7 MM HG (35-48); ABG PH 7.221 (7.35-7.45); ABG TCO2 14.7 MMOL/L (23-27); Allen Test Positive; Pt O2 Delivery Device Ventilator
[2020-04-29 05:16] LABS: Hypochromasia 1+; Lymphocytes 4 % (20-55); Nucleated Red Blood Cells 1 (0-5); Platelet Estimate Adequate; Segmented Neutrophils 91 % (50-85); Total Cells Counted 100
[2020-04-29 05:17] LABS: Microcytosis Slight
[2020-04-29] MEDS: INSULIN REGULAR 100 UNIT/ML SUBCUT SCH ×3 (05:23→18:18)
[2020-04-29] MEDS: PANTOPRAZOLE 40 MG VIAL IV SCH (08:26)
[2020-04-29] MEDS: ASPIRIN CHEW 81 MG TABLET PO SCH (08:26)
[2020-04-29] MEDS: amLODIPine 10 MG TABLET PO SCH (08:26)
[2020-04-29] MEDS: SEVELAMER CARBONATE POWDER 2.4 GM PACK PO SCH ×3 (08:26→20:42)
[2020-04-29] MEDS: HEPARIN INJ 25,000 UNIT in SODIUM CHLORIDE 0.9% 495 ML IV SCH ×2 (10:17→15:39)
[2020-04-29] MEDS ORDERED: ALTEPLASE 2 MG VIAL INTRACATH ONE ×2 (14:23→14:24)
[2020-04-29] MEDS: DEXAMETHASONE 4 MG/1 ML VIAL IV SCH (15:58)
[2020-04-29] MEDS: BISACODYL 5 MG TABLET PER TUBE SCH (20:42)
[2020-04-29] MEDS: COLISTIMETHATE 150 MG in SODIUM CHLORIDE 0.9% 100 ML IV SCH (20:42)
[2020-04-30] MEDS: HEPARIN INJ 25,000 UNIT in SODIUM CHLORIDE 0.9% 495 ML IV SCH ×2 (00:09→14:10)
[2020-04-30] MEDS: INSULIN REGULAR 100 UNIT/ML SUBCUT SCH ×4 (00:47→18:14)
[2020-04-30 04:56] LABS: ABG Base Excess -12.7 MMOL/L (-2.5-2.5); ABG HCO3 14.6 MMOL/L (20-26); ABG Oxygen Saturation 98.2 % (95-100); ABG PCO2 39.6 MM HG (35-48); Allen Test Positive; Pt O2 Delivery Device Ventilator
[2020-04-30 05:00] LABS: ABG PH 7.189 (7.35-7.45)
[2020-04-30 05:26] LABS: Basophils # 0.1 10*3/uL (0.0-0.2); Basophils % 0.2 % (0.0-0.8); Hematocrit 24.8 VOL% (35.7-47.0); Hemoglobin 7.5 GM/DL (12.0-16.0); Immature Granulocytes % 9.2 %; Immature Granulocytes Absolute 1.97 #; Lymphocytes # 0.8 10*3/uL (1.4-4.0); Lymphocytes % 3.5 % (21.3-54.2); Mean Corpuscular HGB Conc 30.2 GM/DL (32-36); Mean Corpuscular Volume 97.3 FL (87-102); Mean Platelet Volume 10.9 FL (9.6-12.0); Monocytes % 4.7 % (1.7-12.7); NRBC # 0.09 10*3/uL; Neutrophils % 82.4 % (38.7-73.9); Platelet Count 262 T/CUMM (130-400); Red Blood Count 2.55 MC/CUMM (3.8-5.5); Red Cell Distribution Width 15.9 % (9.3-17.3); White Blood Count 21.5 T/CUMM (4-12)
[2020-04-30] MEDS ORDERED: SODIUM BICARBONATE 50 MEQ/50 ML VIAL IV ONE ×2 (05:29→05:30)
[2020-04-30 05:53] LABS: Calcium 7.9 MG/DL (8.5-10.1); Osmolality,Calculated 292.7 MOS/KG (273-304)
[2020-04-30] MEDS: ASPIRIN CHEW 81 MG TABLET PO SCH (08:41)
[2020-04-30] MEDS: amLODIPine 10 MG TABLET PO SCH (08:44)
[2020-04-30] MEDS: PANTOPRAZOLE 40 MG VIAL IV SCH (08:50)
[2020-04-30] MEDS: SEVELAMER CARBONATE POWDER 2.4 GM PACK PO SCH ×3 (08:57→20:48)
[2020-04-30 12:33] LABS: Band Neutrophils 3 % (0-10); Lymphocytes 7 % (20-55); Segmented Neutrophils 88 % (50-85); Total Cells Counted 100
[2020-04-30 12:35] LABS: Platelet Estimate Adequate
[2020-04-30] MEDS ORDERED: HEPARIN 10,000 UNIT/10 ML VIAL IV SCH (15:00)
[2020-04-30] MEDS: DEXAMETHASONE 4 MG/1 ML VIAL IV SCH (15:04)
[2020-04-30] MEDS ORDERED: VANCOMYCIN INJ 2,000 MG in SODIUM CHLORIDE 0.9% 500 ML IV ONE (18:00)
[2020-04-30] MEDS: fentaNYL INJ 2,500 MCG in SODIUM CHLORIDE 0.9% 450 ML IV PRN (19:06)
[2020-04-30] MEDS: BISACODYL 5 MG TABLET PER TUBE SCH (20:48)
[2020-05-01] MEDS: INSULIN REGULAR 100 UNIT/ML SUBCUT SCH ×4 (00:36→17:04)
[2020-05-01] MEDS: HEPARIN INJ 25,000 UNIT in SODIUM CHLORIDE 0.9% 495 ML IV SCH ×2 (03:32→16:48)
[2020-05-01 05:06] LABS: ABG Base Excess -10.4 MMOL/L (-2.5-2.5); ABG Oxygen Saturation 99.1 % (95-100); ABG PH 7.297 (7.35-7.45); ABG TCO2 14.4 MMOL/L (23-27); Allen Test Positive; Pt O2 Delivery Device Ventilator
[2020-05-01 06:09] LABS: Calcium 8.1 MG/DL (8.5-10.1); Osmolality,Calculated 297.4 MOS/KG (273-304)
[2020-05-01 07:13] LABS: Basophils % 0.2 % (0.0-0.8); Hematocrit 25.7 VOL% (35.7-47.0); Hemoglobin 7.8 GM/DL (12.0-16.0); Immature Granulocytes % 8.8 %; Lymphocytes # 1.1 10*3/uL (1.4-4.0); Lymphocytes % 4.7 % (21.3-54.2); Mean Corpuscular HGB Conc 30.4 GM/DL (32-36); Mean Corpuscular Volume 97.3 FL (87-102); Mean Platelet Volume 10.9 FL (9.6-12.0); Monocytes % 3.9 % (1.7-12.7); NRBC # 0.07 10*3/uL; Neutrophils % 82.4 % (38.7-73.9); Platelet Count 286 T/CUMM (130-400); Red Blood Count 2.64 MC/CUMM (3.8-5.5); Red Cell Distribution Width 15.9 % (9.3-17.3); White Blood Count 22.6 T/CUMM (4-12)
[2020-05-01] MEDS: PANTOPRAZOLE 40 MG VIAL IV SCH (08:02)
[2020-05-01] MEDS: amLODIPine 10 MG TABLET PO SCH (08:03)
[2020-05-01] MEDS: ASPIRIN CHEW 81 MG TABLET PO SCH (08:03)
[2020-05-01] MEDS: SEVELAMER CARBONATE POWDER 2.4 GM PACK PO SCH ×3 (08:04→21:01)
[2020-05-01 10:20] LABS: Band Neutrophils 2 % (0-10); Burr Cells 1+; Hypochromasia Slight; Lymphocytes 3 % (20-55); Metamyelocytes 7 %; Myelocytes 1 %; Ovalocytes Slight; Poikilocytosis 1+; Polychromasia Slight; Schistocytes Slight; Segmented Neutrophils 84 % (50-85); Total Cells Counted 100
[2020-05-01 10:21] LABS: Platelet Estimate Normal
[2020-05-01] MEDS: DEXAMETHASONE 4 MG/1 ML VIAL IV SCH (15:22)
[2020-05-01] MEDS: fentaNYL INJ 2,500 MCG in SODIUM CHLORIDE 0.9% 450 ML IV PRN (16:48)
[2020-05-01] MEDS: BISACODYL 5 MG TABLET PER TUBE SCH (21:01)
[2020-05-02] MEDS: INSULIN REGULAR 100 UNIT/ML SUBCUT SCH ×4 (00:53→17:26)
[2020-05-02 05:03] LABS: ABG Base Excess -12.7 MMOL/L (-2.5-2.5); ABG HCO3 13.7 MMOL/L (20-26); ABG Oxygen Saturation 97.7 % (95-100); ABG PCO2 33.5 MM HG (35-48); ABG PH 7.231 (7.35-7.45); ABG PO2 119.7 MM HG (80-95); ABG TCO2 14.8 MMOL/L (23-27); Allen Test Positive; Pt O2 Delivery Device Ventilator
[2020-05-02] MEDS: HEPARIN INJ 25,000 UNIT in SODIUM CHLORIDE 0.9% 495 ML IV SCH ×2 (05:10→18:07)
[2020-05-02 05:35] LABS: Basophils # 0.1 10*3/uL (0.0-0.2); Basophils % 0.4 % (0.0-0.8); Eosinophils # 0.7 10*3/uL (0.0-0.87); Eosinophils % 3.4 % (0.00-10.9); Hematocrit 23.5 VOL% (35.7-47.0); Hemoglobin 7.2 GM/DL (12.0-16.0); Immature Granulocytes % 10.8 %; Immature Granulocytes Absolute 2.22 #; Lymphocytes # 1.7 10*3/uL (1.4-4.0); Lymphocytes % 8.1 % (21.3-54.2); Mean Corpuscular HGB Conc 30.6 GM/DL (32-36); Mean Corpuscular Volume 99.2 FL (87-102); Mean Platelet Volume 11.6 FL (9.6-12.0); Monocytes % 3.8 % (1.7-12.7); NRBC # 0.12 10*3/uL; Neutrophils % 73.5 % (38.7-73.9); Platelet Count 287 T/CUMM (130-400); Red Blood Count 2.37 MC/CUMM (3.8-5.5); Red Cell Distribution Width 16.3 % (9.3-17.3); White Blood Count 20.6 T/CUMM (4-12)
[2020-05-02 06:02] LABS: Calcium 7.7 MG/DL (8.5-10.1); Osmolality,Calculated 297.4 MOS/KG (273-304)
[2020-05-02 06:05] LABS: Band Neutrophils 3 % (0-10); Eosinophils 5 % (0-10); Hypochromasia Slight; Lymphocytes 11 % (20-55); Metamyelocytes 1 %; Myelocytes 1 %; Nucleated Red Blood Cells 1 (0-5); Segmented Neutrophils 73 % (50-85); Total Cells Counted 100
[2020-05-02 06:06] LABS: Burr Cells Slight; Microcytosis Slight; Polychromasia Slight
[2020-05-02] MEDS: ASPIRIN CHEW 81 MG TABLET PO SCH (08:03)
[2020-05-02] MEDS: PANTOPRAZOLE 40 MG VIAL IV SCH (08:03)
[2020-05-02] MEDS: amLODIPine 10 MG TABLET PO SCH (08:03)
[2020-05-02] MEDS: SEVELAMER CARBONATE POWDER 2.4 GM PACK PO SCH ×3 (08:04→20:31)
[2020-05-02] MEDS: fentaNYL INJ 2,500 MCG in SODIUM CHLORIDE 0.9% 450 ML IV PRN ×2 (08:24→18:08)
[2020-05-02] MEDS: ACETAMINOPHEN 325 MG/10.15 ML UDCUP PO PRN ×2 (09:27→20:32)
[2020-05-02] MEDS ORDERED: SODIUM CHLORIDE 0.9% 1,000 ML IV PRN (11:50)
[2020-05-02 13:40] LABS: Hepatitis B Surface Ag Quant 0.11 Index; Hepatitis B Surface Ag Result Negative (Negative)
[2020-05-02] MEDS ORDERED: HEPARIN 5,000 UNIT/1 ML VIAL IV ONE (14:09)
[2020-05-02] MEDS: DEXAMETHASONE 4 MG/1 ML VIAL IV SCH (15:36)
[2020-05-02] MEDS ORDERED: VANCOMYCIN INJ 750 MG in SODIUM CHLORIDE 0.9% 250 ML IV PRN (17:00)
[2020-05-02] MEDS: BISACODYL 5 MG TABLET PER TUBE SCH (20:31)
[2020-05-02] MEDS: COLISTIMETHATE 150 MG in SODIUM CHLORIDE 0.9% 100 ML IV SCH (20:31)
[2020-05-02 20:46] LABS: Hematocrit 23.1 VOL% (35.7-47.0)
[2020-05-03] MEDS: INSULIN REGULAR 100 UNIT/ML SUBCUT SCH ×4 (00:20→17:54)
[2020-05-03] MEDS: fentaNYL INJ 2,500 MCG in SODIUM CHLORIDE 0.9% 450 ML IV PRN ×2 (04:25→14:31)
[2020-05-03 04:26] LABS: ABG Base Excess -11.6 MMOL/L (-2.5-2.5); ABG HCO3 15.1 MMOL/L (20-26); ABG Oxygen Saturation 98.5 % (95-100); ABG PCO2 34.6 MM HG (35-48); ABG PH 7.241 (7.35-7.45); ABG TCO2 14.3 MMOL/L (23-27); Allen Test Positive; Pt O2 Delivery Device Ventilator
[2020-05-03 05:26] LABS: Basophils % 0.2 % (0.0-0.8); Eosinophils % 0.1 % (0.00-10.9); Hematocrit 23.2 VOL% (35.7-47.0); Immature Granulocytes % 10.6 %; Immature Granulocytes Absolute 1.88 #; Lymphocytes # 1.4 10*3/uL (1.4-4.0); Lymphocytes % 7.6 % (21.3-54.2); Mean Corpuscular HGB Conc 30.2 GM/DL (32-36); Mean Corpuscular Volume 98.3 FL (87-102); Mean Platelet Volume 12.1 FL (9.6-12.0); Monocytes % 4.7 % (1.7-12.7); NRBC # 0.05 10*3/uL; Neutrophils % 76.8 % (38.7-73.9); Platelet Count 220 T/CUMM (130-400); Red Blood Count 2.36 MC/CUMM (3.8-5.5); Red Cell Distribution Width 16.8 % (9.3-17.3); White Blood Count 17.8 T/CUMM (4-12)
[2020-05-03 05:50] LABS: Calcium 7.6 MG/DL (8.5-10.1); Osmolality,Calculated 292.7 MOS/KG (273-304)
[2020-05-03 06:00] LABS: Band Neutrophils 3 % (0-10); Lymphocytes 7 % (20-55); Segmented Neutrophils 81 % (50-85); Total Cells Counted 100
[2020-05-03 06:01] LABS: Anisocytosis 1+; Ovalocytes 1+; Platelet Estimate Normal
[2020-05-03] MEDS: HEPARIN INJ 25,000 UNIT in SODIUM CHLORIDE 0.9% 495 ML IV SCH ×3 (06:03→20:49)
[2020-05-03] MEDS: ASPIRIN CHEW 81 MG TABLET PO SCH (08:26)
[2020-05-03] MEDS: amLODIPine 10 MG TABLET PO SCH (08:26)
[2020-05-03] MEDS: SEVELAMER CARBONATE POWDER 2.4 GM PACK PO SCH ×3 (08:27→20:36)
[2020-05-03] MEDS: PANTOPRAZOLE 40 MG VIAL IV SCH (08:27)
[2020-05-03] MEDS: MULTIVITAMIN LIQUID (CENTRUM) 60 ML BOTTLE PO SCH (08:40)
[2020-05-03] MEDS: DEXAMETHASONE 4 MG/1 ML VIAL IV SCH (16:05)
[2020-05-03] MEDS: BISACODYL 5 MG TABLET PER TUBE SCH (20:36)
[2020-05-04] MEDS: INSULIN REGULAR 100 UNIT/ML SUBCUT SCH ×4 (00:54→18:01)
[2020-05-04] MEDS: fentaNYL INJ 2,500 MCG in SODIUM CHLORIDE 0.9% 450 ML IV PRN ×2 (00:54→17:59)
[2020-05-04 03:43] LABS: ABG Base Excess -12.6 MMOL/L (-2.5-2.5); ABG HCO3 14.4 MMOL/L (20-26); ABG Oxygen Saturation 98.8 % (95-100); ABG PCO2 33.5 MM HG (35-48); ABG PH 7.229 (7.35-7.45); ABG TCO2 13.4 MMOL/L (23-27)
[2020-05-04 05:47] LABS: Basophils % 0.2 % (0.0-0.8); Hemoglobin 7.2 GM/DL (12.0-16.0); Immature Granulocytes % 13.7 %; Immature Granulocytes Absolute 2.42 #; Lymphocytes # 1.2 10*3/uL (1.4-4.0); Lymphocytes % 6.7 % (21.3-54.2); Mean Corpuscular Volume 99.2 FL (87-102); Mean Platelet Volume 12.1 FL (9.6-12.0); Monocytes % 3.9 % (1.7-12.7); Neutrophils % 75.5 % (38.7-73.9); Platelet Count 269 T/CUMM (130-400); Red Blood Count 2.42 MC/CUMM (3.8-5.5); Red Cell Distribution Width 17.1 % (9.3-17.3); White Blood Count 17.7 T/CUMM (4-12)
[2020-05-04 06:01] LABS: Osmolality,Calculated 306.1 MOS/KG (273-304)
[2020-05-04] MEDS: HEPARIN INJ 25,000 UNIT in SODIUM CHLORIDE 0.9% 495 ML IV SCH ×2 (06:15→19:08)
[2020-05-04] MEDS ORDERED: HEPARIN 5,000 UNIT/1 ML VIAL IV ONE (06:20)
[2020-05-04 06:21] LABS: Band Neutrophils 1 % (0-10); Burr Cells Slight; Hypochromasia 1+; Lymphocytes 14 % (20-55); Microcytosis Slight; Ovalocytes Slight; Platelet Estimate Adequate; Segmented Neutrophils 79 % (50-85); Total Cells Counted 100
[2020-05-04 06:26] VITALS: BP 119/56
[2020-05-04] MEDS: ASPIRIN CHEW 81 MG TABLET PO SCH (08:14)
[2020-05-04] MEDS: PANTOPRAZOLE 40 MG VIAL IV SCH (08:14)
[2020-05-04] MEDS: amLODIPine 10 MG TABLET PO SCH (08:14)
[2020-05-04] MEDS: MULTIVITAMIN LIQUID (CENTRUM) 60 ML BOTTLE PO SCH (08:15)
[2020-05-04] MEDS: SEVELAMER CARBONATE POWDER 2.4 GM PACK PO SCH ×3 (08:15→20:54)
[2020-05-04] MEDS ORDERED: SODIUM BICARBONATE 50 MEQ/50 ML VIAL IV ONE (14:38)
[2020-05-04] MEDS: DEXAMETHASONE 4 MG/1 ML VIAL IV SCH (15:45)
[2020-05-04] MEDS ORDERED: AMIKACIN 500 MG in SODIUM CHLORIDE 0.9% 100 ML IV PRN (16:51)
[2020-05-04] MEDS ORDERED: AMIKACIN 500 MG in SODIUM CHLORIDE 0.9% 100 ML IV ONE (18:00)
[2020-05-04] MEDS: BISACODYL 5 MG TABLET PER TUBE SCH (20:54)
[2020-05-05] MEDS: INSULIN REGULAR 100 UNIT/ML SUBCUT SCH ×4 (00:31→17:12)
[2020-05-05 04:49] LABS: ABG Base Excess -13.2 MMOL/L (-2.5-2.5); ABG Oxygen Saturation 97.8 % (95-100); ABG PCO2 30.7 MM HG (35-48); ABG PH 7.243 (7.35-7.45); ABG PO2 126.8 MM HG (80-95); ABG TCO2 13.9 MMOL/L (23-27); Allen Test Positive; Pt O2 Delivery Device Ventilator
[2020-05-05 05:05] LABS: Basophils % 0.2 % (0.0-0.8); Eosinophils % 0.1 % (0.00-10.9); Hemoglobin 7.6 GM/DL (12.0-16.0); Immature Granulocytes % 11.3 %; Immature Granulocytes Absolute 2.15 #; Lymphocytes % 5.3 % (21.3-54.2); Mean Corpuscular HGB Conc 31.7 GM/DL (32-36); Mean Corpuscular Volume 96.4 FL (87-102); Monocytes % 4.2 % (1.7-12.7); NRBC # 0.15 10*3/uL; Neutrophils % 78.9 % (38.7-73.9); Platelet Count 268 T/CUMM (130-400); Red Blood Count 2.49 MC/CUMM (3.8-5.5); Red Cell Distribution Width 17.3 % (9.3-17.3)
[2020-05-05 05:21] LABS: Calcium 7.8 MG/DL (8.5-10.1)
[2020-05-05 05:28] LABS: Band Neutrophils 2 % (0-10); Burr Cells Slight; Lymphocytes 4 % (20-55); Nucleated Red Blood Cells 1 (0-5); Polychromasia Slight; Segmented Neutrophils 89 % (50-85); Total Cells Counted 100
[2020-05-05 05:29] LABS: Anisocytosis 1+; Hypochromasia 1+; Microcytosis 1+; Platelet Estimate Normal
[2020-05-05] MEDS: HEPARIN INJ 25,000 UNIT in SODIUM CHLORIDE 0.9% 495 ML IV SCH ×3 (07:02→21:07)
[2020-05-05] MEDS: MULTIVITAMIN LIQUID (CENTRUM) 60 ML BOTTLE PO SCH (08:55)
[2020-05-05] MEDS: SEVELAMER CARBONATE POWDER 2.4 GM PACK PO SCH ×3 (08:55→20:56)
[2020-05-05] MEDS: ASPIRIN CHEW 81 MG TABLET PO SCH (08:55)
[2020-05-05] MEDS: amLODIPine 10 MG TABLET PO SCH (08:55)
[2020-05-05] MEDS: PANTOPRAZOLE 40 MG VIAL IV SCH (08:55)
[2020-05-05] MEDS: fentaNYL INJ 2,500 MCG in SODIUM CHLORIDE 0.9% 450 ML IV PRN ×2 (11:28→16:47)
[2020-05-05] MEDS: COLISTIMETHATE 150 MG in SODIUM CHLORIDE 0.9% 100 ML IV SCH (12:27)
[2020-05-05] MEDS ORDERED: SODIUM CHLORIDE 0.9% IV SCH (13:00)
[2020-05-05] MEDS ORDERED: COLISTIMETHATE IV SCH (13:00)
[2020-05-05] MEDS: hydrALAZINE 20 MG/1 ML VIAL IV PRN (13:37)
[2020-05-05] MEDS: DEXAMETHASONE 4 MG/1 ML VIAL IV SCH (15:34)
[2020-05-05] MEDS: BISACODYL 5 MG TABLET PER TUBE SCH (20:56)
[2020-05-06] MEDS: INSULIN REGULAR 100 UNIT/ML SUBCUT SCH ×4 (01:14→17:44)
[2020-05-06 04:25] LABS: Basophils # 0.1 10*3/uL (0.0-0.2); Basophils % 0.3 % (0.0-0.8); Eosinophils # 0.3 10*3/uL (0.0-0.87); Eosinophils % 1.6 % (0.00-10.9); Hematocrit 24.8 VOL% (35.7-47.0); Hemoglobin 7.7 GM/DL (12.0-16.0); Immature Granulocytes % 10.1 %; Lymphocytes # 1.2 10*3/uL (1.4-4.0); Lymphocytes % 6.7 % (21.3-54.2); Mean Corpuscular Volume 97.6 FL (87-102); Mean Platelet Volume 12.4 FL (9.6-12.0); Monocytes % 2.9 % (1.7-12.7); NRBC # 0.33 10*3/uL; Neutrophils % 78.4 % (38.7-73.9); Platelet Count 220 T/CUMM (130-400); Red Blood Count 2.54 MC/CUMM (3.8-5.5); Red Cell Distribution Width 17.6 % (9.3-17.3); White Blood Count 17.8 T/CUMM (4-12)
[2020-05-06 04:39] LABS: Calcium 7.3 MG/DL (8.5-10.1); Osmolality,Calculated 306.2 MOS/KG (273-304)
[2020-05-06 04:45] LABS: Allen Test Positive; Pt O2 Delivery Device Ventilator
[2020-05-06 04:48] LABS: ABG Base Excess -16.3 MMOL/L (-2.5-2.5); ABG HCO3 11.4 MMOL/L (20-26); ABG Oxygen Saturation 97.3 % (95-100); ABG PCO2 34.1 MM HG (35-48); ABG PO2 123.4 MM HG (80-95); ABG TCO2 12.4 MMOL/L (23-27)
[2020-05-06 04:55] LABS: ABG PH 7.142 (7.35-7.45)
[2020-05-06 04:55] LABS: Band Neutrophils 1 % (0-10); Eosinophils 1 % (0-10); Hypochromasia 1+; Lymphocytes 7 % (20-55); Microcytosis 1+; Nucleated Red Blood Cells 2 (0-5); Platelet Estimate Adequate; Segmented Neutrophils 84 % (50-85); Total Cells Counted 100
[2020-05-06] MEDS: fentaNYL INJ 2,500 MCG in SODIUM CHLORIDE 0.9% 450 ML IV PRN ×2 (05:14→14:06)
[2020-05-06] MEDS: ASPIRIN CHEW 81 MG TABLET PO SCH (08:27)
[2020-05-06] MEDS: MULTIVITAMIN LIQUID (CENTRUM) 60 ML BOTTLE PO SCH (08:30)
[2020-05-06] MEDS: SEVELAMER CARBONATE POWDER 2.4 GM PACK PO SCH ×3 (08:30→21:02)
[2020-05-06] MEDS: amLODIPine 10 MG TABLET PO SCH (08:30)
[2020-05-06] MEDS: PANTOPRAZOLE 40 MG VIAL IV SCH (09:05)
[2020-05-06] MEDS: HEPARIN INJ 25,000 UNIT in SODIUM CHLORIDE 0.9% 495 ML IV SCH (12:52)
[2020-05-06] MEDS: DEXAMETHASONE 4 MG/1 ML VIAL IV SCH (16:49)
[2020-05-06] MEDS: BISACODYL 5 MG TABLET PER TUBE SCH (21:01)
[2020-05-06] MEDS: COLISTIMETHATE 150 MG in SODIUM CHLORIDE 0.9% 100 ML IV SCH (21:06)
[2020-05-07] MEDS: INSULIN REGULAR 100 UNIT/ML SUBCUT SCH ×4 (00:21→18:01)
[2020-05-07] MEDS: fentaNYL INJ 2,500 MCG in SODIUM CHLORIDE 0.9% 450 ML IV PRN ×3 (01:25→19:24)
[2020-05-07] MEDS: HEPARIN INJ 25,000 UNIT in SODIUM CHLORIDE 0.9% 495 ML IV SCH ×2 (01:25→13:55)
[2020-05-07 03:27] LABS: ABG Base Excess -14.2 MMOL/L (-2.5-2.5); ABG HCO3 13.3 MMOL/L (20-26); ABG Oxygen Saturation 98.1 % (95-100); ABG PCO2 35.1 MM HG (35-48); ABG TCO2 12.8 MMOL/L (23-27); Allen Test Positive; Pt O2 Delivery Device Ventilator
[2020-05-07 03:29] LABS: ABG PH 7.181 (7.35-7.45)
[2020-05-07 05:23] LABS: Basophils % 0.1 % (0.0-0.8); Hematocrit 24.6 VOL% (35.7-47.0); Hemoglobin 7.3 GM/DL (12.0-16.0); Immature Granulocytes % 11.4 %; Immature Granulocytes Absolute 1.76 #; Lymphocytes # 0.8 10*3/uL (1.4-4.0); Mean Corpuscular HGB Conc 29.7 GM/DL (32-36); Mean Corpuscular Volume 100.4 FL (87-102); Mean Platelet Volume 12.5 FL (9.6-12.0); Monocytes % 2.6 % (1.7-12.7); NRBC # 0.11 10*3/uL; Neutrophils % 80.9 % (38.7-73.9); Platelet Count 203 T/CUMM (130-400); Red Blood Count 2.45 MC/CUMM (3.8-5.5); White Blood Count 15.5 T/CUMM (4-12)
[2020-05-07 05:40] LABS: Calcium 7.4 MG/DL (8.5-10.1)
[2020-05-07 06:18] LABS: Band Neutrophils 2 % (0-10); Lymphocytes 9 % (20-55); Platelet Estimate Adequate; Segmented Neutrophils 87 % (50-85); Total Cells Counted 100
[2020-05-07 06:19] LABS: Hypochromasia 2+; Microcytosis 1+; Ovalocytes Slight
[2020-05-07] MEDS ORDERED: SODIUM BICARBONATE 50 MEQ/50 ML VIAL IV ONE ×2 (06:22→06:24)
[2020-05-07] MEDS ORDERED: SODIUM BICARB INJ 150 MEQ in DEXTROSE 5% 850 ML IV ONE (07:00)
[2020-05-07] MEDS: amLODIPine 10 MG TABLET PO SCH (08:18)
[2020-05-07] MEDS: SEVELAMER CARBONATE POWDER 2.4 GM PACK PO SCH ×3 (08:18→22:01)
[2020-05-07] MEDS: MULTIVITAMIN LIQUID (CENTRUM) 60 ML BOTTLE PO SCH (08:18)
[2020-05-07] MEDS: ASPIRIN CHEW 81 MG TABLET PO SCH (08:18)
[2020-05-07] MEDS: PANTOPRAZOLE 40 MG VIAL IV SCH (08:21)
[2020-05-07] MEDS ORDERED: AMIKACIN 500 MG in SODIUM CHLORIDE 0.9% 100 ML IV ONE (17:00)
[2020-05-07] MEDS: BISACODYL 5 MG TABLET PER TUBE SCH (22:00)
[2020-05-08] MEDS: INSULIN REGULAR 100 UNIT/ML SUBCUT SCH ×4 (00:14→19:05)
[2020-05-08] MEDS: fentaNYL INJ 2,500 MCG in SODIUM CHLORIDE 0.9% 450 ML IV PRN ×4 (01:20→17:57)
[2020-05-08 02:50] LABS: ABG Base Excess -11.8 MMOL/L (-2.5-2.5); ABG HCO3 15.1 MMOL/L (20-26); ABG Oxygen Saturation 98.3 % (95-100); ABG PCO2 38.4 MM HG (35-48); ABG TCO2 14.6 MMOL/L (23-27); Allen Test Positive; Pt O2 Delivery Device Ventilator
[2020-05-08 02:55] LABS: ABG PH 7.209 (7.35-7.45)
[2020-05-08 04:21] LABS: Basophils % 0.2 % (0.0-0.8); Eosinophils # 0.1 10*3/uL (0.0-0.87); Eosinophils % 0.4 % (0.00-10.9); Hematocrit 22.6 VOL% (35.7-47.0); Hemoglobin 6.7 GM/DL (12.0-16.0); Immature Granulocytes % 8.9 %; Immature Granulocytes Absolute 1.57 #; Lymphocytes % 5.5 % (21.3-54.2); Mean Corpuscular HGB Conc 29.6 GM/DL (32-36); Mean Corpuscular Volume 99.6 FL (87-102); Mean Platelet Volume 12.7 FL (9.6-12.0); Monocytes % 2.8 % (1.7-12.7); NRBC # 0.32 10*3/uL; Neutrophils % 82.2 % (38.7-73.9); Platelet Count 213 T/CUMM (130-400); Red Blood Count 2.27 MC/CUMM (3.8-5.5); Red Cell Distribution Width 18.6 % (9.3-17.3); White Blood Count 17.6 T/CUMM (4-12)
[2020-05-08] MEDS: HEPARIN INJ 25,000 UNIT in SODIUM CHLORIDE 0.9% 495 ML IV SCH ×2 (04:27→16:47)
[2020-05-08 04:44] LABS: Band Neutrophils 2 % (0-10); Eosinophils 1 % (0-10); Lymphocytes 3 % (20-55); Nucleated Red Blood Cells 4 (0-5); Segmented Neutrophils 90 % (50-85); Total Cells Counted 100
[2020-05-08 04:45] LABS: Hypochromasia 2+; Microcytosis 1+; Platelet Estimate Adequate
[2020-05-08 04:49] LABS: Calcium 7.6 MG/DL (8.5-10.1); Osmolality,Calculated 311.8 MOS/KG (273-304)
[2020-05-08] MEDS: SEVELAMER CARBONATE POWDER 2.4 GM PACK PO SCH ×3 (09:20→21:45)
[2020-05-08] MEDS: ASPIRIN CHEW 81 MG TABLET PO SCH (09:20)
[2020-05-08] MEDS: MULTIVITAMIN LIQUID (CENTRUM) 60 ML BOTTLE PO SCH (09:20)
[2020-05-08] MEDS: PANTOPRAZOLE 40 MG VIAL IV SCH (09:22)
[2020-05-08] MEDS: amLODIPine 10 MG TABLET PO SCH (09:22)
[2020-05-08] MEDS ORDERED: SODIUM CHLORIDE 0.9% 1,000 ML IV PRN (14:52)
[2020-05-08] MEDS ORDERED: MEROPENEM 500 MG in SODIUM CHLORIDE 0.9% 100 ML IV SCH (18:00)
[2020-05-08 19:49] LABS: Apearance,Urine Slightly Hazy (Clear); Bacteria,Urine Occasional /HPF (Few); Bilirubin,Urine Negative (Negative); Blood, Urine Small mg/dL (Negative); Glucose,Urine (UA) Negative (Negative); Ketones,Urine Negative (Negative); Mucus,Urine Occasional /LPF (Occasional); Nitrite,Urine Negative (Negative); Protein,Urine 30 MG/DL; RBC,Urine 9 /HPF (0-4); Squamous Epithelial Cell,Urine Occasional /HPF (0-10); Urine Specific Gravity 1.013 (1.001-1.035); Urine Urobilinogen < 2.0 EU/DL (0.2-1.0); WBC,Urine 11 /HPF (0-6)
[2020-05-08 19:50] LABS: Urine Color Yellow (Yellow)
[2020-05-08] MEDS: BISACODYL 5 MG TABLET PER TUBE SCH (21:45)
[2020-05-09] MEDS: INSULIN REGULAR 100 UNIT/ML SUBCUT SCH ×4 (00:14→18:11)
[2020-05-09 03:26] LABS: ABG Base Excess -12.4 MMOL/L (-2.5-2.5); ABG HCO3 14.4 MMOL/L (20-26); ABG Oxygen Saturation 97.5 % (95-100); ABG PCO2 35.5 MM HG (35-48); ABG PH 7.216 (7.35-7.45); ABG TCO2 14.1 MMOL/L (23-27)
[2020-05-09 05:57] LABS: Calcium 7.4 MG/DL (8.5-10.1)
[2020-05-09] MEDS: HEPARIN INJ 25,000 UNIT in SODIUM CHLORIDE 0.9% 495 ML IV SCH ×3 (06:15→19:33)
[2020-05-09] MEDS: PANTOPRAZOLE 40 MG VIAL IV SCH (08:10)
[2020-05-09] MEDS: ASPIRIN CHEW 81 MG TABLET PO SCH (08:10)
[2020-05-09] MEDS: MULTIVITAMIN LIQUID (CENTRUM) 60 ML BOTTLE PO SCH (08:10)
[2020-05-09] MEDS: amLODIPine 10 MG TABLET PO SCH (08:10)
[2020-05-09] MEDS: SEVELAMER CARBONATE POWDER 2.4 GM PACK PO SCH ×3 (08:10→21:43)
[2020-05-09] MEDS: fentaNYL INJ 2,500 MCG in SODIUM CHLORIDE 0.9% 450 ML IV PRN (09:00)
[2020-05-09] MEDS: FUROSEMIDE 40 MG/4 ML VIAL IV SCH (11:35)
[2020-05-09] MEDS ORDERED: AMIKACIN 500 MG in SODIUM CHLORIDE 0.9% 100 ML IV ONE (15:00)
[2020-05-09] MEDS: BISACODYL 5 MG TABLET PER TUBE SCH (21:43)
[2020-05-09] MEDS: COLISTIMETHATE 150 MG in SODIUM CHLORIDE 0.9% 100 ML IV SCH (21:43)
[2020-05-09] MEDS: fentaNYL INJ 2,500 MCG in SODIUM CHLORIDE 0.9% 75 ML IV PRN (22:55)
[2020-05-10] MEDS: INSULIN REGULAR 100 UNIT/ML SUBCUT SCH ×4 (00:47→17:12)
[2020-05-10 04:35] LABS: ABG Base Excess -8.4 MMOL/L (-2.5-2.5); ABG HCO3 17.6 MMOL/L (20-26); ABG Oxygen Saturation 98.5 % (95-100); ABG PCO2 32.5 MM HG (35-48); ABG PH 7.323 (7.35-7.45); Allen Test Positive; Pt O2 Delivery Device Ventilator
[2020-05-10 05:04] LABS: Basophils % 0.2 % (0.0-0.8); Eosinophils # 0.3 10*3/uL (0.0-0.87); Hematocrit 22.6 VOL% (35.7-47.0); Immature Granulocytes % 8.4 %; Immature Granulocytes Absolute 1.16 #; Lymphocytes # 1.1 10*3/uL (1.4-4.0); Mean Platelet Volume 12.8 FL (9.6-12.0); Monocytes % 4.5 % (1.7-12.7); NRBC # 0.22 10*3/uL; Neutrophils % 76.9 % (38.7-73.9); Red Blood Count 2.33 MC/CUMM (3.8-5.5); White Blood Count 13.8 T/CUMM (4-12)
[2020-05-10 05:18] LABS: Albumin 1.2 G/DL (3.4-5.0); Bilirubin,Total 8.6 MG/DL (0.2-1.0); Calcium 7.4 MG/DL (8.5-10.1); Osmolality,Calculated 302.7 MOS/KG (273-304)
[2020-05-10 05:27] LABS: Platelet Count 151 T/CUMM (130-400)
[2020-05-10 05:29] LABS: Anisocytosis 1+; Eosinophils 2 % (0-10); Hypochromasia 1+; Lymphocytes 8 % (20-55); Nucleated Red Blood Cells 1 (0-5); Polychromasia Slight; Segmented Neutrophils 86 % (50-85); Total Cells Counted 100
[2020-05-10 05:30] LABS: Target Cells Slight
[2020-05-10] MEDS: MULTIVITAMIN LIQUID (CENTRUM) 60 ML BOTTLE PO SCH (08:04)
[2020-05-10] MEDS: ASPIRIN CHEW 81 MG TABLET PO SCH (08:04)
[2020-05-10] MEDS: amLODIPine 10 MG TABLET PO SCH (08:05)
[2020-05-10] MEDS: FUROSEMIDE 40 MG/4 ML VIAL IV SCH (08:05)
[2020-05-10] MEDS: PANTOPRAZOLE 40 MG VIAL IV SCH (08:05)
[2020-05-10] MEDS: SEVELAMER CARBONATE POWDER 2.4 GM PACK PO SCH ×3 (08:05→21:43)
[2020-05-10] MEDS: HEPARIN INJ 25,000 UNIT in SODIUM CHLORIDE 0.9% 495 ML IV SCH ×3 (09:39→23:44)
[2020-05-10] MEDS: fentaNYL INJ 2,500 MCG in SODIUM CHLORIDE 0.9% 75 ML IV PRN (12:13)
[2020-05-10] MEDS: BISACODYL 5 MG TABLET PER TUBE SCH (21:43)
[2020-05-11] MEDS: INSULIN REGULAR 100 UNIT/ML SUBCUT SCH ×4 (00:36→18:31)
[2020-05-11] MEDS: fentaNYL INJ 2,500 MCG in SODIUM CHLORIDE 0.9% 75 ML IV PRN ×2 (03:20→21:51)
[2020-05-11 04:30] LABS: ABG HCO3 19.5 MMOL/L (20-26); ABG Oxygen Saturation 98.2 % (95-100); ABG PH 7.344 (7.35-7.45); ABG TCO2 17.5 MMOL/L (23-27)
[2020-05-11 05:29] LABS: Basophils # 0.1 10*3/uL (0.0-0.2); Basophils % 0.5 % (0.0-0.8); Eosinophils # 0.3 10*3/uL (0.0-0.87); Eosinophils % 2.3 % (0.00-10.9); Hematocrit 28.5 VOL% (35.7-47.0); Hemoglobin 9.3 GM/DL (12.0-16.0); Immature Granulocytes % 8.5 %; Immature Granulocytes Absolute 1.14 #; Lymphocytes # 1.2 10*3/uL (1.4-4.0); Lymphocytes % 8.6 % (21.3-54.2); Mean Corpuscular HGB Conc 32.6 GM/DL (32-36); Mean Corpuscular Volume 92.2 FL (87-102); Mean Platelet Volume 12.6 FL (9.6-12.0); NRBC # 0.14 10*3/uL; Neutrophils % 76.1 % (38.7-73.9); Platelet Count 159 T/CUMM (130-400); Red Blood Count 3.09 MC/CUMM (3.8-5.5); Red Cell Distribution Width 17.8 % (9.3-17.3); White Blood Count 13.4 T/CUMM (4-12)
[2020-05-11 05:48] LABS: Calcium 7.8 MG/DL (8.5-10.1); Osmolality,Calculated 302.5 MOS/KG (273-304)
[2020-05-11 06:20] LABS: Band Neutrophils 6 % (0-10); Eosinophils 3 % (0-10); Lymphocytes 6 % (20-55); Segmented Neutrophils 79 % (50-85); Total Cells Counted 100
[2020-05-11 06:21] LABS: Hypochromasia 1+; Microcytosis 1+; Platelet Estimate Adequate; Polychromasia Slight
[2020-05-11] MEDS: ASPIRIN CHEW 81 MG TABLET PO SCH (08:14)
[2020-05-11] MEDS: amLODIPine 10 MG TABLET PO SCH (08:14)
[2020-05-11] MEDS: SEVELAMER CARBONATE POWDER 2.4 GM PACK PO SCH ×3 (08:14→20:50)
[2020-05-11] MEDS: MULTIVITAMIN LIQUID (CENTRUM) 60 ML BOTTLE PO SCH (08:15)
[2020-05-11] MEDS: FUROSEMIDE 40 MG/4 ML VIAL IV SCH (08:15)
[2020-05-11] MEDS: PANTOPRAZOLE 40 MG VIAL IV SCH (08:15)
[2020-05-11] MEDS: POTASSIUM CHLORIDE 20 MEQ/15 ML UDCUP PER TUBE PRN ×4 (08:22→18:16)
[2020-05-11] MEDS: METOPROLOL TARTRATE 25 MG TABLET PO SCH ×2 (08:41→20:50)
[2020-05-11] MEDS: ACETAMINOPHEN 325 MG/10.15 ML UDCUP PO PRN (12:33)
[2020-05-11] MEDS: HEPARIN INJ 25,000 UNIT in SODIUM CHLORIDE 0.9% 495 ML IV SCH (14:35)
[2020-05-11] MEDS ORDERED: LEVOFLOXACIN INJ 750 MG in PREMIX 1 EACH IV ONE (15:00)
[2020-05-11] MEDS: COLISTIMETHATE 150 MG in SODIUM CHLORIDE 0.9% 100 ML IV SCH (20:12)
[2020-05-11] MEDS: BISACODYL 5 MG TABLET PER TUBE SCH (20:50)
[2020-05-11] MEDS: MEROPENEM 1,000 MG in SODIUM CHLORIDE 0.9% 100 ML IV SCH (20:58)
[2020-05-12] MEDS: INSULIN REGULAR 100 UNIT/ML SUBCUT SCH ×4 (00:55→18:25)
[2020-05-12] MEDS: POTASSIUM CHLORIDE 20 MEQ/15 ML UDCUP PER TUBE PRN ×3 (01:45→14:44)
[2020-05-12] MEDS: SODIUM CHLORIDE 0.45% IV SCH ×2 (01:54→16:57)
[2020-05-12] MEDS: HEPARIN IV SCH ×2 (01:54→16:57)
[2020-05-12 04:00] LABS: Basophils # 0.1 10*3/uL (0.0-0.2); Basophils % 0.4 % (0.0-0.8); Eosinophils # 0.3 10*3/uL (0.0-0.87); Eosinophils % 1.6 % (0.00-10.9); Hematocrit 30.8 VOL% (35.7-47.0); Hemoglobin 9.8 GM/DL (12.0-16.0); Immature Granulocytes % 6.3 %; Immature Granulocytes Absolute 1.02 #; Lymphocytes # 1.1 10*3/uL (1.4-4.0); Lymphocytes % 6.7 % (21.3-54.2); Mean Corpuscular HGB Conc 31.8 GM/DL (32-36); Mean Corpuscular Volume 93.3 FL (87-102); Mean Platelet Volume 12.3 FL (9.6-12.0); Monocytes % 3.1 % (1.7-12.7); NRBC # 0.07 10*3/uL; Neutrophils % 81.9 % (38.7-73.9); Platelet Count 168 T/CUMM (130-400); Red Cell Distribution Width 18.5 % (9.3-17.3); White Blood Count 16.2 T/CUMM (4-12)
[2020-05-12 04:05] LABS: Calcium 7.8 MG/DL (8.5-10.1); Osmolality,Calculated 291.8 MOS/KG (273-304)
[2020-05-12 04:12] LABS: ABG Base Excess -3.5 MMOL/L (-2.5-2.5); ABG HCO3 21.5 MMOL/L (20-26); ABG Oxygen Saturation 97.8 % (95-100); ABG PCO2 33.6 MM HG (35-48); ABG PH 7.398 (7.35-7.45); ABG PO2 99.2 MM HG (80-95); ABG TCO2 18.9 MMOL/L (23-27)
[2020-05-12 04:47] LABS: Eosinophils 1 % (0-10); Lymphocytes 8 % (20-55); Metamyelocytes 1 %; Segmented Neutrophils 87 % (50-85)
[2020-05-12 04:48] LABS: Hypochromasia 1+; Platelet Estimate Normal; Polychromasia Few
[2020-05-12 04:49] LABS: Target Cells Few; Total Cells Counted 100
[2020-05-12] MEDS: MEROPENEM 1,000 MG in SODIUM CHLORIDE 0.9% 100 ML IV SCH ×2 (08:18→20:37)
[2020-05-12] MEDS: amLODIPine 10 MG TABLET PO SCH (08:20)
[2020-05-12] MEDS: ASPIRIN CHEW 81 MG TABLET PO SCH (08:20)
[2020-05-12] MEDS: METOPROLOL TARTRATE 25 MG TABLET PO SCH ×2 (08:20→20:29)
[2020-05-12] MEDS: MULTIVITAMIN LIQUID (CENTRUM) 60 ML BOTTLE PO SCH (08:20)
[2020-05-12] MEDS: SEVELAMER CARBONATE POWDER 2.4 GM PACK PO SCH ×3 (08:20→20:29)
[2020-05-12] MEDS: PANTOPRAZOLE 40 MG VIAL IV SCH (08:22)
[2020-05-12] MEDS: FUROSEMIDE 40 MG/4 ML VIAL IV SCH (08:22)
[2020-05-12 09:52] LABS: Albumin 1.4 G/DL (3.4-5.0); Bilirubin,Direct 8.9 MG/DL (0.0-0.20); Bilirubin,Indirect 1.3 MG/DL (0.0-1.0); Bilirubin,Total 10.2 MG/DL (0.2-1.0); Total Protein 5.7 G/DL (6.4-8.3)
[2020-05-12] MEDS: SODIUM CHLORIDE 0.9% IV SCH (12:18)
[2020-05-12] MEDS: COLISTIMETHATE IV SCH (12:18)
[2020-05-12] MEDS: hydrALAZINE 20 MG/1 ML VIAL IV PRN (16:37)
[2020-05-12] MEDS: fentaNYL INJ 2,500 MCG in SODIUM CHLORIDE 0.9% 75 ML IV PRN (16:52)
[2020-05-12] MEDS: BISACODYL 5 MG TABLET PER TUBE SCH (20:28)
[2020-05-13] MEDS: COLISTIMETHATE IV SCH ×2 (00:29→12:15)
[2020-05-13] MEDS: SODIUM CHLORIDE 0.9% IV SCH ×2 (00:29→12:15)
[2020-05-13] MEDS: INSULIN REGULAR 100 UNIT/ML SUBCUT SCH ×4 (00:30→18:27)
[2020-05-13] MEDS: SODIUM CHLORIDE 0.45% IV SCH ×2 (00:30→19:07)
[2020-05-13] MEDS: HEPARIN IV SCH ×2 (00:30→19:07)
[2020-05-13 02:54] LABS: ABG Base Excess -2.6 MMOL/L (-2.5-2.5); ABG HCO3 22.2 MMOL/L (20-26); ABG Oxygen Saturation 95.9 % (95-100); ABG PCO2 33.1 MM HG (35-48); ABG PH 7.415 (7.35-7.45); ABG PO2 78.9 MM HG (80-95); ABG TCO2 18.9 MMOL/L (23-27); Allen Test Positive; Pt O2 Delivery Device Ventilator
[2020-05-13 03:47] LABS: Basophils % 0.4 % (0.0-0.8); Eosinophils # 0.3 10*3/uL (0.0-0.87); Eosinophils % 2.7 % (0.00-10.9); Hematocrit 27.5 VOL% (35.7-47.0); Hemoglobin 8.6 GM/DL (12.0-16.0); Immature Granulocytes % 7.4 %; Immature Granulocytes Absolute 0.78 #; Lymphocytes # 1.2 10*3/uL (1.4-4.0); Lymphocytes % 11.4 % (21.3-54.2); Mean Corpuscular HGB Conc 31.3 GM/DL (32-36); Mean Corpuscular Volume 95.5 FL (87-102); Mean Platelet Volume 12.6 FL (9.6-12.0); Monocytes % 3.4 % (1.7-12.7); NRBC # 0.04 10*3/uL; Neutrophils % 74.7 % (38.7-73.9); Platelet Count 173 T/CUMM (130-400); Red Blood Count 2.88 MC/CUMM (3.8-5.5); Red Cell Distribution Width 18.9 % (9.3-17.3); White Blood Count 10.5 T/CUMM (4-12)
[2020-05-13] MEDS ORDERED: HEPARIN 5,000 UNIT/1 ML VIAL IV ONE (04:07)
[2020-05-13 04:09] LABS: Albumin 1.3 G/DL (3.4-5.0); Bilirubin,Total 8.3 MG/DL (0.2-1.0); Calcium 7.7 MG/DL (8.5-10.1); Osmolality,Calculated 299.5 MOS/KG (273-304); Total Protein 5.2 G/DL (6.4-8.3)
[2020-05-13 04:10] LABS: Ferritin 1213.2 ng/ml (8-252)
[2020-05-13 04:31] LABS: Band Neutrophils 4 % (0-10); Eosinophils 4 % (0-10); Lymphocytes 12 % (20-55); Segmented Neutrophils 80 % (50-85); Total Cells Counted 100
[2020-05-13 04:35] LABS: Target Cells 1+
[2020-05-13 04:36] LABS: Polychromasia Few
[2020-05-13 04:37] LABS: Platelet Estimate Normal
[2020-05-13] MEDS: POTASSIUM CHLORIDE 20 MEQ/15 ML UDCUP PER TUBE PRN (06:44)
[2020-05-13] MEDS: amLODIPine 10 MG TABLET PO SCH (09:10)
[2020-05-13] MEDS: SEVELAMER CARBONATE POWDER 2.4 GM PACK PO SCH ×3 (09:10→20:25)
[2020-05-13] MEDS: ASPIRIN CHEW 81 MG TABLET PO SCH (09:10)
[2020-05-13] MEDS: METOPROLOL TARTRATE 25 MG TABLET PO SCH ×2 (09:10→20:25)
[2020-05-13] MEDS: MULTIVITAMIN LIQUID (CENTRUM) 60 ML BOTTLE PO SCH (09:10)
[2020-05-13] MEDS: FUROSEMIDE 40 MG/4 ML VIAL IV SCH (09:13)
[2020-05-13] MEDS: MEROPENEM 1,000 MG in SODIUM CHLORIDE 0.9% 100 ML IV SCH ×2 (09:14→20:30)
[2020-05-13] MEDS: PANTOPRAZOLE 40 MG VIAL IV SCH (09:14)
[2020-05-13] MEDS: fentaNYL INJ 2,500 MCG in SODIUM CHLORIDE 0.9% 75 ML IV PRN (11:55)
[2020-05-13] MEDS: LEVOFLOXACIN INJ 500 MG in PREMIX 1 EACH IV SCH (16:10)
[2020-05-13] MEDS: BISACODYL 5 MG TABLET PER TUBE SCH (20:26)
[2020-05-13] MEDS: ALBUMIN 25% 25 GM in PREMIX 1 EACH IV SCH (20:51)
[2020-05-14] MEDS: INSULIN REGULAR 100 UNIT/ML SUBCUT SCH ×4 (00:34→17:57)
[2020-05-14] MEDS: HEPARIN IV SCH ×2 (00:37→12:10)
[2020-05-14] MEDS: COLISTIMETHATE IV SCH ×2 (00:37→13:22)
[2020-05-14] MEDS: SODIUM CHLORIDE 0.9% IV SCH ×2 (00:37→13:22)
[2020-05-14] MEDS: SODIUM CHLORIDE 0.45% IV SCH ×2 (00:37→12:10)
[2020-05-14 04:41] LABS: Basophils % 0.3 % (0.0-0.8); Eosinophils # 0.4 10*3/uL (0.0-0.87); Eosinophils % 3.1 % (0.00-10.9); Hematocrit 25.5 VOL% (35.7-47.0); Hemoglobin 7.9 GM/DL (12.0-16.0); Immature Granulocytes % 5.1 %; Immature Granulocytes Absolute 0.57 #; Lymphocytes # 0.9 10*3/uL (1.4-4.0); Lymphocytes % 8.3 % (21.3-54.2); Mean Corpuscular Volume 95.5 FL (87-102); Mean Platelet Volume 12.4 FL (9.6-12.0); Monocytes % 2.8 % (1.7-12.7); NRBC # 0.02 10*3/uL; Neutrophils % 80.4 % (38.7-73.9); Platelet Count 161 T/CUMM (130-400); Red Blood Count 2.67 MC/CUMM (3.8-5.5); Red Cell Distribution Width 19.5 % (9.3-17.3); White Blood Count 11.2 T/CUMM (4-12)
[2020-05-14 04:59] LABS: ABG Base Excess -4.5 MMOL/L (-2.5-2.5); ABG HCO3 20.7 MMOL/L (20-26); ABG Oxygen Saturation 98.5 % (95-100); ABG PCO2 36.9 MM HG (35-48); ABG PH 7.355 (7.35-7.45); ABG TCO2 19.2 MMOL/L (23-27); Allen Test Positive; Pt O2 Delivery Device Ventilator
[2020-05-14 05:02] LABS: Calcium 7.6 MG/DL (8.5-10.1); Osmolality,Calculated 300.5 MOS/KG (273-304)
[2020-05-14] MEDS: fentaNYL INJ 2,500 MCG in SODIUM CHLORIDE 0.9% 75 ML IV PRN (05:16)
[2020-05-14] MEDS: ALBUMIN 25% 25 GM in PREMIX 1 EACH IV SCH ×3 (05:30→21:30)
[2020-05-14 05:32] LABS: Albumin 1.3 G/DL (3.4-5.0); Bilirubin,Direct 7.49 MG/DL (0.0-0.20); Bilirubin,Indirect 0.8 MG/DL (0.0-1.0); Bilirubin,Total 8.3 MG/DL (0.2-1.0); Total Protein 5.1 G/DL (6.4-8.3)
[2020-05-14 06:23] LABS: Band Neutrophils 1 % (0-10); Eosinophils 3 % (0-10); Metamyelocytes 1 %; Nucleated Red Blood Cells 1 (0-5); Total Cells Counted 100
[2020-05-14 06:24] LABS: Acanthocytes Few; Anisocytosis 1+; Hypersegmented Neutrophil 1+; Hypochromasia 2+; Lymphocytes 8 % (20-55); Macrocytosis 1+; Ovalocytes Few; Platelet Estimate Normal; Segmented Neutrophils 85 % (50-85); Target Cells 2+
[2020-05-14] MEDS: MEROPENEM 1,000 MG in SODIUM CHLORIDE 0.9% 100 ML IV SCH ×2 (09:16→22:30)
[2020-05-14] MEDS: MULTIVITAMIN LIQUID (CENTRUM) 60 ML BOTTLE PO SCH (09:16)
[2020-05-14] MEDS: SEVELAMER CARBONATE POWDER 2.4 GM PACK PO SCH ×3 (09:16→21:50)
[2020-05-14] MEDS: PANTOPRAZOLE 40 MG VIAL IV SCH (09:16)
[2020-05-14] MEDS: amLODIPine 10 MG TABLET PO SCH (09:16)
[2020-05-14] MEDS: METOPROLOL TARTRATE 25 MG TABLET PO SCH ×2 (09:16→21:50)
[2020-05-14] MEDS: FUROSEMIDE 40 MG/4 ML VIAL IV SCH (09:16)
[2020-05-14] MEDS ORDERED: DEXMEDETOMIDINE 200 MCG in SODIUM CHLORIDE 0.9% 48 ML IV PRN (10:05)
[2020-05-14] MEDS: ASPIRIN CHEW 81 MG TABLET PO SCH (10:11)
[2020-05-14] MEDS: BISACODYL 5 MG TABLET PER TUBE SCH (21:50)
[2020-05-15] MEDS: INSULIN REGULAR 100 UNIT/ML SUBCUT SCH ×4 (01:02→18:26)
[2020-05-15] MEDS: SODIUM CHLORIDE 0.9% IV SCH ×2 (01:02→14:10)
[2020-05-15] MEDS: COLISTIMETHATE IV SCH ×2 (01:02→14:10)
[2020-05-15] MEDS: SODIUM CHLORIDE 0.45% IV SCH ×2 (01:02→06:53)
[2020-05-15] MEDS: HEPARIN IV SCH ×2 (01:02→06:53)
[2020-05-15 05:10] LABS: ABG Base Excess -5.9 MMOL/L (-2.5-2.5); ABG HCO3 19.5 MMOL/L (20-26); ABG Oxygen Saturation 99.1 % (95-100); ABG PCO2 31.1 MM HG (35-48); ABG PH 7.382 (7.35-7.45); ABG TCO2 17.2 MMOL/L (23-27); Allen Test Positive; Pt O2 Delivery Device Ventilator
[2020-05-15] MEDS: ALBUMIN 25% 25 GM in PREMIX 1 EACH IV SCH ×3 (05:45→21:51)
[2020-05-15 06:07] LABS: Basophils % 0.2 % (0.0-0.8); Eosinophils # 0.3 10*3/uL (0.0-0.87); Eosinophils % 3.8 % (0.00-10.9); Hematocrit 24.7 VOL% (35.7-47.0); Hemoglobin 7.6 GM/DL (12.0-16.0); Immature Granulocytes % 4.8 %; Immature Granulocytes Absolute 0.43 #; Lymphocytes # 0.8 10*3/uL (1.4-4.0); Mean Corpuscular HGB Conc 30.8 GM/DL (32-36); Mean Corpuscular Volume 96.9 FL (87-102); Mean Platelet Volume 12.5 FL (9.6-12.0); Monocytes % 3.1 % (1.7-12.7); Neutrophils % 79.1 % (38.7-73.9); Platelet Count 173 T/CUMM (130-400); Red Blood Count 2.55 MC/CUMM (3.8-5.5); Red Cell Distribution Width 19.9 % (9.3-17.3)
[2020-05-15 06:22] LABS: Osmolality,Calculated 301.7 MOS/KG (273-304)
[2020-05-15 06:35] LABS: Bilirubin,Direct 7.91 MG/DL (0.0-0.20); Bilirubin,Indirect 1.6 MG/DL (0.0-1.0); Bilirubin,Total 9.5 MG/DL (0.2-1.0); Total Protein 5.1 G/DL (6.4-8.3)
[2020-05-15] MEDS: FUROSEMIDE 40 MG/4 ML VIAL IV SCH (08:37)
[2020-05-15] MEDS: PANTOPRAZOLE 40 MG VIAL IV SCH (08:37)
[2020-05-15] MEDS: amLODIPine 10 MG TABLET PO SCH (08:38)
[2020-05-15] MEDS: ASPIRIN CHEW 81 MG TABLET PO SCH (08:38)
[2020-05-15] MEDS: MEROPENEM 1,000 MG in SODIUM CHLORIDE 0.9% 100 ML IV SCH ×2 (08:38→21:53)
[2020-05-15] MEDS: SEVELAMER CARBONATE POWDER 2.4 GM PACK PO SCH ×3 (08:38→21:53)
[2020-05-15] MEDS: METOPROLOL TARTRATE 25 MG TABLET PO SCH ×2 (08:38→21:53)
[2020-05-15] MEDS: MULTIVITAMIN LIQUID (CENTRUM) 60 ML BOTTLE PO SCH (08:38)
[2020-05-15] MEDS: LEVOFLOXACIN INJ 500 MG in PREMIX 1 EACH IV SCH (16:30)
[2020-05-15] MEDS: BISACODYL 5 MG TABLET PER TUBE SCH (21:52)
[2020-05-16] MEDS: INSULIN REGULAR 100 UNIT/ML SUBCUT SCH ×3 (00:42→13:14)
[2020-05-16] MEDS: HEPARIN IV SCH ×2 (00:43)
[2020-05-16] MEDS: SODIUM CHLORIDE 0.45% IV SCH ×2 (00:43)
[2020-05-16] MEDS: COLISTIMETHATE IV SCH ×2 (01:40→14:05)
[2020-05-16] MEDS: SODIUM CHLORIDE 0.9% IV SCH ×2 (01:40→14:05)
[2020-05-16] MEDS: ALBUMIN 25% 25 GM in PREMIX 1 EACH IV SCH (04:31)
[2020-05-16 04:45] LABS: ABG Base Excess -5.6 MMOL/L (-2.5-2.5); ABG HCO3 18.8 MMOL/L (20-26); ABG Oxygen Saturation 98.3 % (95-100); ABG PH 7.386 (7.35-7.45); ABG PO2 148.1 MM HG (80-95); ABG TCO2 19.7 MMOL/L (23-27); Allen Test Positive; Pt O2 Delivery Device Ventilator
[2020-05-16 06:15] LABS: Basophils % 0.2 % (0.0-0.8); Eosinophils # 0.4 10*3/uL (0.0-0.87); Eosinophils % 4.3 % (0.00-10.9); Hemoglobin 7.3 GM/DL (12.0-16.0); Immature Granulocytes % 3.7 %; Immature Granulocytes Absolute 0.33 #; Lymphocytes # 0.7 10*3/uL (1.4-4.0); Lymphocytes % 8.2 % (21.3-54.2); Mean Corpuscular HGB Conc 31.7 GM/DL (32-36); Mean Corpuscular Volume 93.9 FL (87-102); Mean Platelet Volume 12.3 FL (9.6-12.0); Monocytes % 2.7 % (1.7-12.7); Neutrophils % 80.9 % (38.7-73.9); Platelet Count 170 T/CUMM (130-400); Red Blood Count 2.45 MC/CUMM (3.8-5.5); Red Cell Distribution Width 20.1 % (9.3-17.3); White Blood Count 8.9 T/CUMM (4-12)
[2020-05-16 06:45] LABS: Calcium 8.2 MG/DL (8.5-10.1); Osmolality,Calculated 305.5 MOS/KG (273-304)
[2020-05-16 07:10] LABS: Albumin 2.6 G/DL (3.4-5.0); Bilirubin,Direct 8.56 MG/DL (0.0-0.20); Bilirubin,Indirect 2.4 MG/DL (0.0-1.0); Total Protein 5.4 G/DL (6.4-8.3)
[2020-05-16] MEDS: ASPIRIN CHEW 81 MG TABLET PO SCH (08:24)
[2020-05-16] MEDS: SEVELAMER CARBONATE POWDER 2.4 GM PACK PO SCH ×2 (08:24→16:12)
[2020-05-16] MEDS: amLODIPine 10 MG TABLET PO SCH (08:24)
[2020-05-16] MEDS: FUROSEMIDE 40 MG/4 ML VIAL IV SCH (08:25)
[2020-05-16] MEDS: POTASSIUM CHLORIDE 20 MEQ/15 ML UDCUP PER TUBE PRN ×3 (08:25→12:47)
[2020-05-16] MEDS: MULTIVITAMIN LIQUID (CENTRUM) 60 ML BOTTLE PO SCH (08:25)
[2020-05-16] MEDS: PANTOPRAZOLE 40 MG VIAL IV SCH (08:25)
[2020-05-16] MEDS: MEROPENEM 1,000 MG in SODIUM CHLORIDE 0.9% 100 ML IV SCH (08:41)
[2020-05-16] MEDS: DEXMEDETOMIDINE 400 MCG in SODIUM CHLORIDE 0.9% 96 ML IV PRN ×2 (08:45→13:13)
[2020-05-16] MEDS: METOPROLOL TARTRATE 25 MG TABLET PO SCH (09:59)
[2020-05-16] MEDS ORDERED: MAGNESIUM SULF RIDER 4 GM in PREMIX 1 EACH IV PRN (10:14)
[2020-05-16] MEDS ORDERED: MAGNESIUM SULF RIDER 2 GM in PREMIX 1 EACH IV PRN (10:14)
[2020-05-16] MEDS ORDERED: HEPARIN 5,000 UNIT/1 ML VIAL SUBCUT SCH (11:30)
== END 2020-05-16 17:42 | DRG 4 ==
LOC: SUATTDRO 03:09 → N.CC 03:09
PROVIDERS: ADMIT Surgery; ATTEND Family Medicine